=== PATIENT | male | born 1960 | race Caucasian/White ===

== ENCOUNTER 2020-08-14 12:00 | Inpatient (IN) | payer MEDICARE, MEDICAID, SELFPAY ==
[2020-08-14] VITALS (11 sets, daily range): BP systolic 112–145; BP diastolic 46–73; PULSE 56–72; RESP 16–23; TEMP 36.2–36.9; O2SAT 96–99; BMI 38.9
--- NOTE | 2020-08-14 12:41 | ECG_ITS ---
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 Measurements Intervals [place] Rate: 59 P: 52 KS: 201 QRS: 33 QRSD: 100 T: 72 QT: 423 QTc: 419 Interpretive Statements SINUS BRADYCARDIA NONSPECIFIC T-WAVE ABNORMALITY Compared to ECG 08/13/2017 00:22:28 T-wave abnormality now present Atrial fibrillation no longer present Myocardial infarct finding no longer present Electronically Signed On 08-15-2020 8:18:28 CDT by Sheyla Brar M.D. [id number]
--- NOTE | 2020-08-14 13:45 | USCV_ITS ---
Harley Bradley Age: 59 Gender: M : 1960 Exam Date: 08/14/2020 14:16 Ordering Phys: Genevieve Galvin DO Technologist: Christine Keith Exam Location: [facility] [place] Indication: PAIN IN LT POST THIGH HISTORY: Pain in left post thigh. No trauma PROCEDURES: Venous duplex imaging was performed in only the left lower extremity. The following venous structures were evaluated: common femoral vein, profunda vein, proximal portion of the greater saphenous vein, superficial femoral vein, and the popliteal vein. In addition, the posterior tibial and peroneal trunk were evaluated. Serial compression, augmentation maneuvers, and spectral Doppler flow evaluation were performed. FINDINGS: Normal 2-D Doppler and augmentation and compressibility throughout the lower extremity venous structures. Additional imaging through the proximal calf veins also reveals no thrombus. Limited evaluation of the greater saphenous vein is patent with no thrombus.. Edema infiltrating throught the soft tissues of posterior thigh. May be related to muscle or tendon injury. CONCLUSIONS No DVT left lower extremity. Dr. Jaye Rojas DO (Electronically Signed) Final Date: 14 August 2020 15:41 S
--- NOTE | 2020-08-14 14:32 | ED_ITS ---
HPI - General Adult General: Chief complaint: General Medical Stated complaint: LEFT LEG PAIN, Time Seen by Provider: 08/14/20 13:18 Source: patient Mode of arrival: ambulatory Limitations: no limitations History of Present Illness: HPI narrative: Harley is a nice 59-year-old male who comes in complaining of left leg pain. States he has lightheadedness and dizziness. Denies chest pain or shortness of breath. He states his leg pains been present for the past 3 days. He denies any other complaints or concerns. He states that he has severe pain in the back of his left leg and anytime he tries to walk or bear weight it is severe and it makes him nearly pass out. He denies any injury to the leg. He said no fevers or chills. He denies any other complaints. Associated symptoms: Deny chest pain, dyspnea, headache(s), nausea, rash, palpitations, syncope or vomiting Review of Systems Const: Denies: fever(s) Eyes: Denies: change in vision or blurry vision ENMT: Denies: throat pain, hoarseness or swelling of lips/tongue Card: Denies: chest pain, palpitations, syncope, pre-syncope or dyspnea on exertion Resp: Denies: dyspnea, productive cough, non-productive cough, wheezing, change in phlegm color or hemoptysis GI: Denies: abdominal pain, nausea, vomiting or diarrhea : Denies: flank pain, dysuria, urinary frequency or urinary urgency Musc: Denies: neck pain, back pain or extremity pain Skin/Breast: Denies: rash or pruritus Neuro: Denies: headache(s), numbness in extremities, weakness in extremities or dizziness Elliot/Lymph: Denies: easy bruising, easy bleeding, petechiae or purpura All/Imm: Denies: urticaria or throat swelling PFSH ED PFSH: Medical History Atrial fibrillation Coronary artery disease Dyslipidemia Dyspnea on exertion History of Coumadin therapy Hypertension Nicotine dependence Obesity Surgical History Aortic valve replaced [place] metallic device Family History Other CAD (coronary artery disease) Hypertension Social History (Reviewed 09/18/20 @ 20:02 by Genevieve Balderas Smoking and tobacco status: current every day smoker cigarettes [ Other cigarette details: 1 pack/day ] Alcohol intake: never Substance/Drug Use: never Housing: House Physical Exam Const: COMMON NORMALS: no acute distress, patient oriented x3, no limitations and alert GENERAL APPEARANCE: cooperative HENMT: COMMON NORMALS: normocephalic, atraumatic, external ears normal, EAC's normal and Normal external nose present HEAD & SCALP: normal to inspection, normocephalic and atraumatic FACE & SINUS: normal facial exam and face symmetric NOSE: Normal external nose present and Normal nares present EXTERNAL EAR: Yes external ears normal EXTERNAL AUDITORY CANAL: EAC's normal MOUTH: Normal oral and palatal mucosa present, lip normal and tongue normal Eye: COMMON NORMALS: Equal, round and reactive pupils present and conjunctivae normal GENERAL EYE: appearance normal, both eyes and all related structures ALIGNMENT: Yes alignment normal PERIORBITAL: periorbital findings normal EYELID: eyelids normal CONJUNCTIVA: Yes conjunctivae normal SCLERA: sclerae normal PUPIL: Yes Equal, round and reactive pupils present Neck/C-Spine: COMMON NORMALS: full ROM, no lymphadenopathy, supple, no meningeal signs and no JVD GENERAL: Yes normal visual inspection and Yes trachea midline Chest: COMMONS NORMALS: normal inspection of the chest and normal palpation of entire chest wall Resp: COMMON NORMALS: normal respiratory effort, No retractions, No use of accessory muscles and clear to auscultation bilaterally EFFORT & INSPECTION: Yes able to speak in complete sentences and Yes symmetric chest movement AUSCULTATION: clear to auscultation bilaterally, no crackles, no rales, no rhonchi and no wheezes Cardio: COMMON NORMALS: no JVD, regular rate, regular rhythm, S1 normal heart sound present and S2 normal heart sound present RATE: regular rate RHYTHM: regular rhythm HEART SOUNDS: S1 normal heart sound present, S2 normal heart sound present, no click, no gallops, no murmurs and no rubs GI: COMMON NORMALS: Soft to palpation and No hepatosplenomegaly present PALPATION: Yes Soft to palpation, No Tenderness to palpation present (GI), No Guarding due to palpation present (GI), No Rigid due to palpation, Yes No hepatosplenomegaly present, No Hernia present, No Palpable mass present and No Pulsatile mass present : COMMON NORMALS: Yes no CVA tenderness BLADDER/KIDNEY EXAM: Yes no CVA tenderness Back/Pelvis: COMMON NORMALS: no CVA tenderness, thoracic and lumbar spine normal to inspection, no thoracic nor lumbar tenderness and thoraco-lumbar ROM normal Extremity: COMMON NORMALS: capillary refill normal, no joint enlargement, no clubbing, cyanosis or edema and no calf tenderness NARRATIVE EXTREMITY EXAM: Posterior aspect of left thigh with cellulitis and ecchymosis. Neuro: COMMON NORMALS: patient oriented x3, CN's II-XII intact bilaterally, moves all extremities, no focal motor deficits and no sensory deficits noted SENSORIUM/ORIENTATION: Yes alert MENINGEAL SIGNS: Yes no meningeal signs SPEECH: speech normal Psych: COMMON NORMALS: mental status grossly normal, Normal thought process present, cooperative, normal affect, speech normal and activity/motor behavior normal SPEECH: Yes normal speech THOUGHT PROCESS: Normal thought process present Skin: COMMON NORMALS: no rashes or lesions noted, turgor normal, no jaundice, no petechiae and no mottling GENERAL SKIN EXAM: no rashes or lesions noted and turgor normal Course Vital Signs: Vital signs: Vital Signs Temperature 97.1 F L 08/14/20 12:15 Pulse Rate 58 L 08/14/20 19:00 Respiratory Rate 18 08/14/20 19:00 Blood Pressure 135/53 08/14/20 19:00 Pulse Oximetry 99 08/14/20 19:00 MDM - General Adult MDM Narrative: Medical decision making narrative: Patient has intermuscular hematoma of the left leg but there is no sign of inflammation or necrotizing fasciitis. His pain is intractable to the point that he almost passes out when he tries to walk or bear weight. I cannot reverse his Coumadin abruptly as he has a mechanical heart valve. I see a high white count which makes me concerned about a possible developing infection but the radiologist assures me he sees no evidence of necrotizing fasciitis at this time. The case was endorsed to Dr. Treadwell who agrees to admit the patient for observation and he will determine whether to continue IV been a biotics or reverse the Coumadin. Lab Data: Attestation: I reviewed the patient's lab results. Labs: Lab Results 08/14/20 08/14/20 08/14/20 Range/Units 14:43 14:43 14:43 WBC 23.0 H (4.0-10.0) 10^3/ uL RBC 3.84 L (4.1-5.3) 10^6/u L Hgb 12.0 (11.7-16.6) g/dL Hct 35.9 L (42.0-52.0) % MCV 93.5 (80-94) fL MCH 31.3 (28.0-34.0) pg MCHC 33.4 (30.0-36.0) g/dL RDW 12.6 (12.1-15.1) % Plt Count 267 (130-400) 10^3/c mm MPV 10.7 H (7.4-10.4) fL Neut % (Auto) 82.5 % Lymph % (Auto) 9.3 % [place] % (Auto) 7.7 % Eos % (Auto) 0.0 % Baso % (Auto) 0.2 % Neut # (Auto) 18.95 H (1.8-7.7) 10^3/u L Lymph # (Auto) 2.1 (0.8-4.8) 10^3/u L [place] # (Auto) 1.8 H (0.2-0.9) 10^3/u L Eos # (Auto) 0.0 (0.0-0.8) 10^3/u L Baso # (Auto) 0.1 (0.0-0.1) 10^3/u L Nucleated RBC % (a uto) 0 % Nucleated RBCs # 0.0 /100WBC PT (12.1-14.9) SECO NDS INR (0.8-1.2) D-Dimer (0-0.59) ug/mIFE U Sodium 136 (136-145) mmol/L Potassium 3.7 (3.5-5.1) mmol/L Chloride 100 (98-107) mmol/L Carbon Dioxide 20 L (22-29) mmol/L Anion Gap 19.7 H (5-19) BUN 19 (6-20) mg/dL Creatinine 1.4 H (0.7-1.2) mg/dL GFR Calculation 51.9 L (90-130) mL/min Glucose 127 H (65-115) mg/dL Calculated Osmolal ity 286 (285-295) mOsm/k g Lactic Acid (0.5-2.2) mmol/L Calcium 9.1 (8.5-10.5) mg/dL Total Bilirubin 0.5 (0.15-1.2) mg/dL AST 9 (0-40) U/L ALT 9 (0-41) U/L Alkaline Phosphata se 80 (40-130) IU/L Troponin T Baselin e 18 H (0-15) ng/L Troponin T 120 Min hetal (0-15) ng/L Delta Troponin T (0-10) ABS# NT-Pro-B Natriuret Pep 232 H (0-125) pg/mL Total Protein 6.9 (6.6-8.7) g/dL Albumin 3.8 (3.5-5.2) g/dL Globulin 3.1 (1.3-4.6) g/dL 08/14/20 08/14/20 08/14/20 Range/Units 14:43 16:59 18:06 WBC (4.0-10.0) 10^3/ uL RBC (4.1-5.3) 10^6/u L Hgb (11.7-16.6) g/dL Hct (42.0-52.0) % MCV (80-94) fL MCH (28.0-34.0) pg MCHC (30.0-36.0) g/dL RDW (12.1-15.1) % Plt Count (130-400) 10^3/c mm MPV (7.4-10.4) fL Neut % (Auto) % Lymph % (Auto) % [place] % (Auto) % Eos % (Auto) % Baso % (Auto) % Neut # (Auto) (1.8-7.7) 10^3/u L Lymph # (Auto) (0.8-4.8) 10^3/u L [place] # (Auto) (0.2-0.9) 10^3/u L Eos # (Auto) (0.0-0.8) 10^3/u L Baso # (Auto) (0.0-0.1) 10^3/u L Nucleated RBC % (a uto) % Nucleated RBCs # /100WBC PT 37.20 H (12.1-14.9) SECO NDS INR 3.59 H (0.8-1.2) D-Dimer 0.32 (0-0.59) ug/mIFE U Sodium (136-145) mmol/L Potassium (3.5-5.1) mmol/L Chloride (98-107) mmol/L Carbon Dioxide (22-29) mmol/L Anion Gap (5-19) BUN (6-20) mg/dL Creatinine (0.7-1.2) mg/dL GFR Calculation (90-130) mL/min Glucose (65-115) mg/dL Calculated Osmolal ity (285-295) mOsm/k g Lactic Acid (0.5-2.2) mmol/L Calcium (8.5-10.5) mg/dL Total Bilirubin (0.15-1.2) mg/dL AST (0-40) U/L ALT (0-41) U/L Alkaline Phosphata se (40-130) IU/L Troponin T Baselin e (0-15) ng/L Troponin T 120 Min hetal 17.55 H (0-15) ng/L Delta Troponin T -0.45 L (0-10) ABS# NT-Pro-B Natriuret Pep (0-125) pg/mL Total Protein (6.6-8.7) g/dL Albumin (3.5-5.2) g/dL Globulin (1.3-4.6) g/dL 08/14/20 Range/Units 18:26 WBC (4.0-10.0) 10^3/ uL RBC (4.1-5.3) 10^6/u L Hgb (11.7-16.6) g/dL Hct (42.0-52.0) % MCV (80-94) fL MCH (28.0-34.0) pg MCHC (30.0-36.0) g/dL RDW (12.1-15.1) % Plt Count (130-400) 10^3/c mm MPV (7.4-10.4) fL Neut % (Auto) % Lymph % (Auto) % [place] % (Auto) % Eos % (Auto) % Baso % (Auto) % Neut # (Auto) (1.8-7.7) 10^3/u L Lymph # (Auto) (0.8-4.8) 10^3/u L [place] # (Auto) (0.2-0.9) 10^3/u L Eos # (Auto) (0.0-0.8) 10^3/u L Baso # (Auto) (0.0-0.1) 10^3/u L Nucleated RBC % (a uto) % Nucleated RBCs # /100WBC PT (12.1-14.9) SECO NDS INR (0.8-1.2) D-Dimer (0-0.59) ug/mIFE U Sodium (136-145) mmol/L Potassium (3.5-5.1) mmol/L Chloride (98-107) mmol/L Carbon Dioxide (22-29) mmol/L Anion Gap (5-19) BUN (6-20) mg/dL Creatinine (0.7-1.2) mg/dL GFR Calculation (90-130) mL/min Glucose (65-115) mg/dL Calculated Osmolal ity (285-295) mOsm/k g Lactic Acid 1.4 (0.5-2.2) mmol/L Calcium (8.5-10.5) mg/dL Total Bilirubin (0.15-1.2) mg/dL AST (0-40) U/L ALT (0-41) U/L Alkaline Phosphata se (40-130) IU/L Troponin T Baselin e (0-15) ng/L Troponin T 120 Min hetal (0-15) ng/L Delta Troponin T (0-10) ABS# NT-Pro-B Natriuret Pep (0-125) pg/mL Total Protein (6.6-8.7) g/dL Albumin (3.5-5.2) g/dL Globulin (1.3-4.6) g/dL Imaging Data^: US venous left lower extremity: My impression: Tech interpretation -no evidence of DVT CXR: Attestation: I personally reviewed and interpreted this imaging study as follows: My impression: No acute cardiopulmonary findings. CT left lower extremity: Radiologist's impression: [address] [address] [address] Scan Report Signed with Addenda Patient: Harley Bradley Unit #: [id number] : 1960 Age/Sex: 59 / M ADM Date: 08/14/20 Loc: ER Room/Bed: Attending Dr: Ordering Provider/Ordering MD: Genevieve Galvin DO Date of Service: 08/14/20 Procedure(s): CT femur LT w con [id number] Accession Number(s): [id number] Report Number: [id number]/CT femur LT w con [id number] ADDENDUM: Please note there is no soft tissue gas or significant inflammatory change to suggest necrotizing fasciitis. Radiation Dose CTDIVOL = (mGy): DLP = 1522.21 (mGy-cm) Addendum Dictated By: Rinku Watkins MD Addendum Signed By: Rinku Watkins MD Signed Date/Time: 1949 Addendum Cosigned By: PROCEDURE INFORMATION: Exam: CT Left Lower Extremity With Contrast; Thigh Exam date and time: 08/14/2020 4:20 PM Age: 59 years old Clinical indication: Patient HX: Left hip pain and swelling, redness distal back of thigh TECHNIQUE: Imaging protocol: CT of the Left lower extremity with intravenous contrast was performed. Exam focused on the thigh. Axial, coronal and sagittal reformatted images were created and reviewed. Radiation optimization: All CT scans at this facility use at least one of these dose optimization techniques: automated exposure control; mA and/or kV adjustment per patient size (includes targeted exams where dose is matched to clinical indication); or iterative reconstruction. Contrast material: VISPAQUE; Contrast volume: 95 ml; Contrast route: INTRAVENOUS (IV); COMPARISON: No relevant prior studies available. RADIATION DOSE METRICS: Total DLP (mGy-cm): 1522.21 FINDINGS: Bones/joints: No acute fracture or dislocation. Alignment anatomic. Mild degenerative changes. No erosive or destructive changes. No lytic or blastic lesion. No significant effusion. Soft tissues: Lobular, heterogeneous hyperattenuation in the left adductor and proximal hamstring musculature, measuring approximately 6.6 x 5.3 x 22.8 cm. Moderate associated soft tissue swelling and intramuscular blood products. Mild overlying subcutaneous edema. Small amount of subcutaneous blood products in the prepatellar/pretibial region. CT/CT femur LT w con [id number] IMPRESSION: 1. Intramuscular hematoma in the left posterior thigh, as described above. 2. Additional findings, as above. Radiation Dose CTDIVOL = (mGy): DLP = 1522.21 (mGy-cm) Dictated By: Rinku Watkins MD Signed By: Rinku Watkins MD Signed Date/Time: 08/14/201709 DD/ 07 EKG Data^: EKG 1: Attestation: I personally reviewed and interpreted this EKG as follows: EKG interpretation date: 08/14/20 EKG interpretation time: 13:54 Interpretation: Sinus bradycardia at 59 beats a minute, no blocks, normal i ntervals, nonspecific ST and T wave changes. Computer generated interpretation: Chest X-Ray 08/14/20 15:49 IMPRESSION: No acute findings. Metallic sternotomy wires are in place. Femur CT 08/14/20 15:54 IMPRESSION: 1. Intramuscular hematoma in the left posterior thigh, as described above. 2. Additional findings, as above. Radiation Dose CTDIVOL = (mGy): DLP = 1522.21 (mGy-cm) ADDENDUM: 08/14/20 1950 ADDENDUM: Please note there is no soft tissue gas or significant inflammatory change to suggest necrotizing fasciitis. Radiation Dose CTDIVOL = (mGy): DLP = 1522.21 (mGy-cm) EKG 2: Attestation: I personally reviewed and interpreted this EKG as follows: EKG interpretation date: 08/14/20 EKG interpretation time: 16:23 Interpretation: Sinus bradycardia at 56 beats a minute, nonspecific ST and T wave changes. Computer generated interpretation: Chest X-Ray 08/14/20 15:49 IMPRESSION: No acute findings. Metallic sternotomy wires are in place. Femur CT 08/14/20 15:54 IMPRESSION: 1. Intramuscular hematoma in the left posterior thigh, as described above. 2. Additional findings, as above. Radiation Dose CTDIVOL = (mGy): DLP = 1522.21 (mGy-cm) ADDENDUM: 08/14/201949 ADDENDUM: Please note there is no soft tissue gas or significant inflammatory change to suggest necrotizing fasciitis. Radiation Dose CTDIVOL = (mGy): DLP = 1522.21 (mGy-cm) Discharge Plan Discharge Patient Disposition: Home Clinical Impression: Supratherapeutic INR, Hematoma, Intractable pain Condition: Stable Prescriptions: No Action metoprolol tartrate 50 mg tablet 50 mg PO BID 90 Days Qty: 180 RF: 3 hydrocodone-acetaminophen 10-325 mg tablet 1 tab PO Q6H PRN (Reason: Pain) RF: 0 triamterene-hydrochlorothiazid 37.5-25 mg tablet 1 tab PO DAILY RF: 0 omeprazole 20 mg capsule,delayed release(DR/EC) 20 mg PO DAILY RF: 0 aspirin 81 mg Tablet,Chewable 81 mg PO DAILY RF: 0 warfarin 1 mg tablet 8.5 mg PO DAILY RF: 0 sertraline 50 mg tablet 50 mg PO DAILY RF: 0 rosuvastatin 40 mg tablet 40 mg PO DAILY RF: 0 potassium chloride 10 mEq tablet,ER particles/crystals 10 meq PO DAILY RF: 0 Referrals: Saurav Victoria DO [Primary Care Provider] - Coding Level of Care Code ED Animal Attendants [employer] for Chg Fwd Exam Comprehensive
[2020-08-14 14:49] LABS: Basophils # 0.1 10^3/uL (0.0-0.1); Basophils % 0.2 %; Hematocrit 35.9 % (42.0-52.0); Lymphocytes # 2.1 10^3/uL (0.8-4.8); Lymphocytes % 9.3 %; Mean Corpuscular HGB Conc 33.4 g/dL (30.0-36.0); Mean Corpuscular Hemoglobin 31.3 pg (28.0-34.0); Mean Corpuscular Volume 93.5 fL (80-94); Mean Platelet Volume 10.7 fL (7.4-10.4); Monocytes # 1.8 10^3/uL (0.2-0.9); Monocytes % 7.7 %; Neutrophils # 18.95 10^3/uL (1.8-7.7); Neutrophils % 82.5 %; Nucleated Red Blood Cells % 0 %; Platelet Count 267 10^3/cmm (130-400); Red Blood Count 3.84 10^6/uL (4.1-5.3); Red Cell Distribution Width 12.6 % (12.1-15.1)
[2020-08-14] MEDS: sodium chloride 0.9% 1,000 ML 100 ML IV (15:02)
[2020-08-14 15:04] LABS: D Dimer 0.32 ug/mIFEU (0-0.59)
[2020-08-14 15:09] LABS: Troponin(5th) Baseline 18 ng/L (0-15)
[2020-08-14 15:40] LABS: Alanine Aminotransferase 9 U/L (0-41); Albumin Level 3.8 g/dL (3.5-5.2); Alkaline Phosphatase 80 IU/L (40-130); Anion Gap 19.7 (5-19); Aspartate Amino Transferase 9 U/L (0-40); Blood Urea Nitrogen 19 mg/dL (6-20); Calcium 9.1 mg/dL (8.5-10.5); Carbon Dioxide 20 mmol/L (22-29); Chloride 100 mmol/L (98-107); Globulin 3.1 g/dL (1.3-4.6); Glomerular Filtration Rate 51.9 mL/min (90-130); Glucose 127 mg/dL (65-115); NT Pro B Type Natriuretic Pept 232 pg/mL (0-125); Osmolality Calculated 286 mOsm/kg (285-295); Potassium 3.7 mmol/L (3.5-5.1); Sodium 136 mmol/L (136-145); Total Bilirubin 0.5 mg/dL (0.15-1.2); Total Protein 6.9 g/dL (6.6-8.7)
--- NOTE | 2020-08-14 15:45 | ECG_ITS ---
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 Measurements Intervals [place] Rate: 56 P: 51 UT: 201 QRS: 25 QRSD: 91 T: 70 QT: 432 QTc: 420 Interpretive Statements SINUS BRADYCARDIA POSSIBLE INFERIOR MYOCARDIAL INFARCTION , OF INDETERMINATE AGE [30 ms Q WAVE IN II/aVF] Compared to ECG 08/14/2020 13:54:29 Myocardial infarct finding now present T-wave abnormality no longer present Electronically Signed On 08-15-2020 8:56:43 CDT by Sheyla Brar M.D. [id number]
--- NOTE | 2020-08-14 15:49 | XRR_ITS ---
PROCEDURE INFORMATION: Exam: XR Chest, 1 View Exam date and time: 08/14/2020 4:03 PM Age: 59 years old Clinical indication: Dyspnea TECHNIQUE: Imaging protocol: XR of the chest Views: 1 view. COMPARISON: CR Chest 1 [place] [id number] 08/12/2017 6:36 PM FINDINGS: Lungs: Unremarkable. No consolidation. Pleural space: Unremarkable. No pleural effusion. No pneumothorax. Heart/Mediastinum: Unremarkable. No cardiomegaly. Bones/joints: Metallic sternotomy wires are in place. Similar findings seen comparing to prior examination XR/XR chest 1V portable [id number] IMPRESSION: No acute findings. Metallic sternotomy wires are in place.
--- NOTE | 2020-08-14 15:54 | CTR_ITS ---
PROCEDURE INFORMATION: Exam: CT Left Lower Extremity With Contrast; Thigh Exam date and time: 08/14/2020 4:20 PM Age: 59 years old Clinical indication: Patient HX: Left hip pain and swelling, redness distal back of thigh TECHNIQUE: Imaging protocol: CT of the Left lower extremity with intravenous contrast was performed. Exam focused on the thigh. Axial, coronal and sagittal reformatted images were created and reviewed. Radiation optimization: All CT scans at this facility use at least one of these dose optimization techniques: automated exposure control; mA and/or kV adjustment per patient size (includes targeted exams where dose is matched to clinical indication); or iterative reconstruction. Contrast material: VISPAQUE; Contrast volume: 95 ml; Contrast route: INTRAVENOUS (IV); COMPARISON: No relevant prior studies available. RADIATION DOSE METRICS: Total DLP (mGy-cm): 1522.21 FINDINGS: Bones/joints: No acute fracture or dislocation. Alignment anatomic. Mild degenerative changes. No erosive or destructive changes. No lytic or blastic lesion. No significant effusion. Soft tissues: Lobular, heterogeneous hyperattenuation in the left adductor and proximal hamstring musculature, measuring approximately 6.6 x 5.3 x 22.8 cm. Moderate associated soft tissue swelling and intramuscular blood products. Mild overlying subcutaneous edema. Small amount of subcutaneous blood products in the prepatellar/pretibial region. CT/CT femur LT w con [id number] IMPRESSION: 1. Intramuscular hematoma in the left posterior thigh, as described above. 2. Additional findings, as above. Radiation Dose CTDIVOL = (mGy): DLP = 1522.21 (mGy-cm)
[2020-08-14] MEDS: iodixanol 320 mg/mL 100mL Btl IV (16:47)
[2020-08-14] MEDS: piperacillin-tazobactam 4.5 GM in sodium chloride 0.9% (plus) 50 ML IV (17:14)
[2020-08-14 17:21] LABS: Troponin 5 2HR 17.55 ng/L (0-15)
[2020-08-14 17:22] LABS: Troponin 5 2HR Delta -0.45 ABS# (0-10)
[2020-08-14 18:26] LABS: INR 3.59 (0.8-1.2)
[2020-08-14 18:49] LABS: Lactic Sepsis W/Reflex 1.4 mmol/L (0.5-2.2)
--- NOTE | 2020-08-14 19:45 | ECG_ITS ---
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 Measurements Intervals [place] Rate: 62 P: 20 SD: 173 QRS: 27 QRSD: 89 T: 58 QT: 438 QTc: 448 Interpretive Statements SINUS RHYTHM POSSIBLE INFERIOR MYOCARDIAL INFARCTION , PROBABLY OLD [30 ms Q WAVE IN II/aVF] Compared to ECG 08/14/2020 16:23:06 Sinus bradycardia no longer present Myocardial infarct finding still present Electronically Signed On 08-15-2020 8:43:49 CDT by Sheyla Brar M.D. [id number]
--- NOTE | 2020-08-14 19:46 | P.HP_ITS ---
Providers/Chief Complaint Primary Care Provider: Saurav Victoria DO Chief Complaint: LEFT LEG PAIN, DIZZY History of Present Illness Harley Bradley is a 59 year old male who carries history of mechanical aortic valve, chronic anticoagulation with Coumadin came in with chief complaint of left leg pain. Patient is stating that his symptoms started 2 days ago when he slept after drinking alcohol, after waking up he started experiencing left eye pain, he did not notice any bruising at that time, he is denying falls, skin tear, trauma to that leg. He did not notice any fever. He is compliant with his Coumadin. He also has been experiencing presyncopal events, he is describing dizziness as lightheadedness, no recent falls. No orthopnea, PND or chest pain. Diagnosis in the ER revealed left thigh hematoma, normal hemoglobin, normal hemodynamics, for leukocytosis he was given vancomycin and Zosyn in the ER, negative delta troponin, EKG not significant for ischemia or infarction. No source of infection. I have demarcated the area of hematoma. Review of Systems Const: Denies: fever(s), chills, body aches or fatigue Eyes: Denies: change in vision ENMT: Denies: throat pain Card: Denies: chest pain Resp: Denies: dyspnea GI: Denies: abdominal pain, nausea, vomiting or diarrhea : Denies: flank pain or urinary frequency Musc: Reports: extremity pain, limited range of motion and muscle cramps Skin/Breast: Reports: new lesions Neuro: Denies: headache(s) Psych: Denies: anxiety Endo: Denies: polyuria Elliot/Lymph: Denies: easy bruising All/Imm: Denies: urticaria Medications/Allergies Home Medications Medication Instructions Recorded Confirmed Last Taken Type metoprolol tartrate 50 mg tablet 50 mg PO BID 90 Days #180 tab 03/03/20 08/14/20 08/14/20 Rx aspirin 81 mg PO DAILY 08/14/20 08/14/20 08/14/20 History hydrocodone-acetaminophen 1 tab PO Q6H PRN 08/14/20 08/14/20 Unknown History omeprazole 20 mg PO DAILY 08/14/20 08/14/20 08/14/20 History potassium chloride 10 meq PO DAILY 08/14/20 08/14/20 08/13/20 History rosuvastatin 40 mg PO DAILY 08/14/20 08/14/20 08/13/20 History sertraline 50 mg PO DAILY 08/14/20 08/14/20 08/14/20 History triamterene-hydrochlorothiazid 1 tab PO DAILY 08/14/20 08/14/20 08/14/20 History warfarin 8.5 mg PO DAILY 08/14/20 08/14/20 08/13/20 History Allergies Allergy/AdvReac Type Severity Reaction Status Date / Time codeine Allergy ADR-Vomitin Verified 08/14/20 12:20 g PFSH Acute PFSH: Medical History Atrial fibrillation Coronary artery disease Dyslipidemia Dyspnea on exertion History of Coumadin therapy Hypertension Nicotine dependence Obesity Surgical History Aortic valve replaced [place] metallic device Family History Other CAD (coronary artery disease) Hypertension Social History Smoking and tobacco status: current every day smoker cigarettes [ Other cigarette details: 1 pack/day ] Alcohol intake: never Substance/Drug Use: never Housing: House Vitals/I&O/Wt Last Vital Signs Temp 97.1 F L 08/14/20 12:15 Pulse 58 L 08/14/20 19:00 Resp 18 08/14/20 19:00 BP 135/53 08/14/20 19:00 Pulse Ox 99 08/14/20 19:00 08/14/20 08/14/20 08/14/20 06:59 14:59 22:59 Intake Total 1050 / 1050 Balance 1050 / 1050 Weight last 48 hrs Weight 145.15 kg Physical Exam Narrative: EXAM NARRATIVE: Morbidly obese male Currently in comfortable position in his bed Saturating well on room air Normal hemodynamics Left posterior thigh hematoma demarcated, tender to palpation, no vascular compromise, no active bleeding or oozing/drainage No signs of heart failure, S1, S2 sinus bradycardia noted on EKG however at the time of evaluation heart rate in 70s Abdomen distended, bowel sound present nontender Lungs clear to auscultation No lower extremity edema gangrene ulcer EOMI, PERRLA Appropriate mood and affect Data : 08/14/20 14:43 08/14/20 14:43 A&P Assessment and plan (1) Leg pain: Status: Acute (2) Hematoma: Status: Acute (3) Pre-syncope: Status: Acute (4) Supratherapeutic INR: Status: Acute (5) GRACIE (acute kidney injury): Status: Acute (6) Intractable pain: Status: Acute Additional A&P Information Left posterior thigh hematoma Spontaneous development of hematoma without any trauma or recent falls Supratherapeutic INR Considering mechanical aortic valve I would not reverse INR with vitamin K or FF P, hold Coumadin and aspirin for now Considering normal hemoglobin and hemodynamics no intervention required Conservative management for monitoring of hematoma Presyncope No recent falls, sinus bradycardia noted on EKG, I would hold metoprolol for now Acute kidney injury I believe this is secondary to use of triamterene/hydrochlorothiazide medication Clinically does not look fluid overloaded, BNP not significantly high I do not think supratherapeutic INR has a role in GRACIE at this point(literature supports renal parenchymal hemorrhage with supratherapeutic INR above 3) Monitor creatinine with daily BMP Holding nephrotoxic agents Nicotine dependence Patient is endorsing that he will not quit smoking, he has been counseled by his PCP and various physicians as well. Full code DVT prophylaxis: SCDs Cardiac diet Attestations Medical Necessity Statement*: Anticipating discharge in less than 48 hours overnight need monitoring for hematoma worsening, GRACIE, holding beta-kraig for presyncopal event Time Spent in Patient Care: (>than 50% of time spent in counselling and/or direct pt care on unit) . 40mins Coding Level of Care Code Acute Television Production Technician for Chg Fwd Diagnoses Leg pain M79.606 Hematoma T14.8XXA Pre-syncope R55 Supratherapeutic INR R79.1 GRACIE (acute kidney injury) N17.9 Intractable pain R52
--- NOTE | 2020-08-14 20:01 | PC.NURSE ---
EKG done at 1999 and shown to ER doctor
[2020-08-14 20:33] LABS: Add Urine Microscopic? YES; Bilirubin Urine Neg (Negative); Blood Urine 2+ (Negative); Glucose Urine UA Norm (Normal); Ketones Urine Negative (Negative); Leukocyte Esterase Urine Negative (Negative); Nitrate Urine Negative (Negative); Protein Urine Neg (Negative); Specific Gravity, Urine 1.005 (1.005-1.030); Urine Appearance Clear (CLEAR); Urine Color Yellow (Yellow); Urobilinogen Urine Norm (Negative); pH Urine 5 (5-7)
[2020-08-14 20:45] LABS: Add Urine Culture? No; Amorphous Sediment Urine TRACE /hpf; Bacteria Urine TRACE /hpf; Hyaline Casts Urine 0-4 /lpf; Mucus Urine 1+ /hpf; Squamous Epithelial Cell Urine 0-4 /hpf (0-5); WBC Urine 0-4 /hpf (0-5)
[2020-08-14 21:25] LABS: Troponin 5 6HR 19.99 ng/L (0-15); Troponin 5 6HR Delta 1.99 ng/L (0-12)
[2020-08-15] VITALS: BP 135/61; PULSE 67; RESP 20; TEMP 37.1; O2SAT 96
[2020-08-15 04:00] VITALS: BP 123/56; PULSE 72; RESP 20; TEMP 36.9; O2SAT 97
[2020-08-15 05:31] LABS: Basophils # 0.1 10^3/uL (0.0-0.1); Basophils % 0.2 %; Eosinophils # 0.1 10^3/uL (0.0-0.8); Eosinophils % 0.4 %; Hematocrit 31.5 % (42.0-52.0); Hemoglobin 10.6 g/dL (11.7-16.6); Lymphocytes # 2.8 10^3/uL (0.8-4.8); Lymphocytes % 13.4 %; Mean Corpuscular HGB Conc 33.7 g/dL (30.0-36.0); Mean Corpuscular Volume 92.1 fL (80-94); Mean Platelet Volume 10.7 fL (7.4-10.4); Monocytes # 1.7 10^3/uL (0.2-0.9); Monocytes % 7.9 %; Neutrophils # 16.11 10^3/uL (1.8-7.7); Neutrophils % 77.6 %; Nucleated Red Blood Cells % 0 %; Platelet Count 264 10^3/cmm (130-400); Red Blood Count 3.42 10^6/uL (4.1-5.3); Red Cell Distribution Width 12.4 % (12.1-15.1); White Blood Count 20.8 10^3/uL (4.0-10.0)
[2020-08-15 05:58] LABS: Anion Gap 13.2 (5-19); Blood Urea Nitrogen 18 mg/dL (6-20); Calcium 8.8 mg/dL (8.5-10.5); Carbon Dioxide 24 mmol/L (22-29); Chloride 101 mmol/L (98-107); Glomerular Filtration Rate 51.9 mL/min (90-130); Glucose 131 mg/dL (65-115); Osmolality Calculated 284 mOsm/kg (285-295); Potassium 3.2 mmol/L (3.5-5.1); Sodium 135 mmol/L (136-145)
[2020-08-15 06:16] LABS: Partial Thromboplastin Time 63.5 SECONDS (23.9-36.7)
[2020-08-15 07:50] VITALS: BP 126/81; PULSE 68; RESP 18; TEMP 36.9; O2SAT 98
[2020-08-15] MEDS: atorvastatin 40 mg Tablet 80 MG PO (08:37)
[2020-08-15] MEDS: pantoprazole DR 40 mg Tablet PO (08:37)
[2020-08-15] MEDS: sertraline 50 mg Tablet PO (08:37)
[2020-08-15] MEDS: potassium chloride ER 10 mEq Tablet PO (08:37)
[2020-08-15 11:16] VITALS: BP 144/79; PULSE 62; RESP 20; TEMP 37.1; O2SAT 98
[2020-08-15] MEDS: potassium chloride ER 10 mEq Tablet 40 MEQ PO (11:21)
--- NOTE | 2020-08-15 12:34 | P.PN_ITS ---
Subjective Subjective: Interval history: History and physical reviewed in detail. Patient reports quite a bit of left posterior leg pain but he can still ambulate. He denies feeling dizzy this morning. He reports he cannot remember any incident. He states he drank some alcohol last night but it was only the equivalent of 2 shots. Medications: Reviewed: Yes Vitals/I&O/Wt Last Vital Signs Temp 98.7 F 08/15/20 11:16 Pulse 62 08/15/20 11:16 Resp 20 H 08/15/20 11:16 BP 144/79 08/15/20 11:16 Pulse Ox 98 08/15/20 11:16 08/14/20 08/15/20 08/15/20 22:59 06:59 14:59 Intake Total 1170 / 1170 700 / 1870 180 / 180 Output Total 500 / 500 700 / 700 Balance 1170 / 1170 200 / 1370 -520 / -520 Weight last 48 hrs Weight 145.15 kg Physical Exam Narrative: EXAM NARRATIVE: General exam no apparent distress Cardiovascular regular rate and rhythm without murmur, click noted Lungs clear Abdomen is soft with positive bowel sounds Extremities no cyanosis clubbing or edema Data : 08/15/20 04:58 08/15/20 04:58 A&P Assessment and plan (1) Leg pain: Secondary to hematoma. Doubt any active bleeding. Coumadin has been held. INR 4.2 today. Status: Acute (2) Hematoma: See notations above Initiated secondary to this and elevated white blood cell count. No evidence c urrently of infection. Antibiotics were previously discontinued Status: Acute (3) Pre-syncope: Secondary to hematoma and blood loss from this. Status: Acute (4) Supratherapeutic INR: Secondary to mechanical aortic valve will not attempt to reverse as I do not believe he is actively bleeding. Check hemoglobin around 1700 Status: Acute (5) GRACIE (acute kidney injury): Improved Status: Acute (6) Intractable pain: Improved Status: Acute Additional A&P Information Mechanical aortic valve. On Coumadin. INR currently supratherapeutic Tobacco dependency Full code INR is supratherapeutic, no DVT prophylaxis needed Changed to regular admission. Patient has significant hematoma size, that can prevent from walking, significant drop in hemoglobin, still elevated and INR and chance for decompensation with the potential to even need transfusion. Hemoglobin will be checked at 5, physical therapy will work with him for safety, and INR will be checked tomorrow along with repeat lab work. Attestations Medical Necessity Statement*: Needs continued hospital stay, for close krysten toring secondary to hematoma development left leg Coding Level of Care Code Acute Beater Tender for Chg Fwd Diagnoses Leg pain M79.606 Hematoma T14.8XXA Pre-syncope R55 Supratherapeutic INR R79.1 GRACIE (acute kidney injury) N17.9 Intractable pain R52
[2020-08-15 15:51] VITALS: BP 124/74; PULSE 67; RESP 20; TEMP 37.2; O2SAT 99
[2020-08-15 17:12] LABS: Hemoglobin 10.6 g/dL (11.7-16.6)
[2020-08-15] MEDS: metoprolol tartrate 25 mg Tablet 12.5 MG PO (17:16)
[2020-08-15 20:00] VITALS: BP 128/76; PULSE 64; RESP 17; TEMP 37.4; O2SAT 97
[2020-08-16] VITALS: BP 137/68; PULSE 66; RESP 16; TEMP 37.1; O2SAT 95
[2020-08-16 04:00] VITALS: BP 107/73; PULSE 68; RESP 17; TEMP 36.9; O2SAT 97
[2020-08-16 04:27] LABS: Basophils % 0.3 %; Eosinophils # 0.1 10^3/uL (0.0-0.8); Eosinophils % 0.6 %; Hematocrit 29.3 % (42.0-52.0); Hemoglobin 10.2 g/dL (11.7-16.6); Lymphocytes # 2.4 10^3/uL (0.8-4.8); Lymphocytes % 15.1 %; Mean Corpuscular HGB Conc 34.8 g/dL (30.0-36.0); Mean Corpuscular Hemoglobin 31.5 pg (28.0-34.0); Mean Corpuscular Volume 90.4 fL (80-94); Mean Platelet Volume 10.2 fL (7.4-10.4); Monocytes # 1.4 10^3/uL (0.2-0.9); Monocytes % 8.7 %; Neutrophils # 11.68 10^3/uL (1.8-7.7); Neutrophils % 74.9 %; Nucleated Red Blood Cells % 0 %; Platelet Count 285 10^3/cmm (130-400); Red Blood Count 3.24 10^6/uL (4.1-5.3); Red Cell Distribution Width 12.3 % (12.1-15.1); White Blood Count 15.6 10^3/uL (4.0-10.0)
[2020-08-16 04:38] LABS: INR 3.79 (0.8-1.2)
[2020-08-16 04:52] LABS: Alanine Aminotransferase 18 U/L (0-41); Albumin Level 3.6 g/dL (3.5-5.2); Alkaline Phosphatase 66 IU/L (40-130); Anion Gap 14.4 (5-19); Aspartate Amino Transferase 23 U/L (0-40); Blood Urea Nitrogen 20 mg/dL (6-20); Calcium 8.2 mg/dL (8.5-10.5); Carbon Dioxide 27 mmol/L (22-29); Chloride 101 mmol/L (98-107); Globulin 2.8 g/dL (1.3-4.6); Glomerular Filtration Rate 56.5 mL/min (90-130); Glucose 129 mg/dL (65-115); Osmolality Calculated 292 mOsm/kg (285-295); Potassium 3.4 mmol/L (3.5-5.1); Sodium 139 mmol/L (136-145); Total Bilirubin 0.7 mg/dL (0.15-1.2); Total Protein 6.4 g/dL (6.6-8.7)
[2020-08-16 07:56] VITALS: BP 128/69; PULSE 63; RESP 18; TEMP 37; O2SAT 96
[2020-08-16] MEDS: metoprolol tartrate 25 mg Tablet 12.5 MG PO (08:43)
[2020-08-16] MEDS: pantoprazole DR 40 mg Tablet PO (08:43)
[2020-08-16] MEDS: atorvastatin 40 mg Tablet 80 MG PO (08:43)
[2020-08-16] MEDS: sertraline 50 mg Tablet PO (08:44)
[2020-08-16] MEDS: potassium chloride ER 10 mEq Tablet 40 MEQ PO (08:56)
--- NOTE | 2020-08-16 09:25 | P.DS_ITS ---
Discharge Providers Date of Admission: 08/15/20 12:45 Date of Discharge: August 16, 2020 Attending Provider at Admission: Jenny Treadwell MD Attending Provider at Discharge: Kelvin Jose MD Primary Care Provider: Saurav Victoria DO Diagnoses at Discharge Discharge Diagnosis (1) Leg pain: Status: Acute (2) Hematoma: Status: Acute (3) Pre-syncope: Status: Acute (4) Supratherapeutic INR: Status: Acute (5) GRACIE (acute kidney injury): Status: Acute (6) Intractable pain: Status: Acute Reason for Visit Reason for Visit: LEFT LEG PAIN, DIZZY Hospital Course Hospital Course: Harley is a 59-year-old white male who presented to the hospital with a supratherapeutic INR, and leg pain. He was found to have a spontaneous hematoma development in the lower thigh. CT confirmed this with an area of hematoma 6.6 x 5.3 x 22.8. Patient had an elevated white blood cell count but no evidence of infection. Physical therapy was consulted, Coumadin was held. Over the course of his hospital stay he was able to ambulate. Feelin gs of faintness went away. Hemoglobin did decrease as expected with significant hematoma bleed but stabilized at 10.2. On August 16 he felt like he was doing well enough to go home. INR had decreased to 3.79 from 4.2. There was no evidence of active bleeding. He was discharged home with instructions not to take his Coumadin, until follow-up with INR tomorrow and instructions per cardiology. He will follow-up with his primary care provider in 3 to 5 days. Physical Exam Narrative: EXAM NARRATIVE: General exam no apparent distress Cardiovascular regular in rhythm without murmur Lungs clear Abdomen is soft with positive bowel sounds Extremities no cyanosis clubbing or edema. Hematoma noted left posterior thigh, proximal to the knee. Distal pulses intact. Discharge Data Data Completed and Pending: Completed Studies During Hospitalization Category Date Time Status CT femur LT w con [id number] Stat Cat Scan 08/14/20 15:54 Completed XR chest 1V ash ble [id number] Stat Exams 08/14/20 15:49 [place] [id number] Stat Ultrasound 08/14/20 13:45 Completed Pending at discharge Category Date Time Status Blood Culture Sta t Lab 08/14/20 17:02 Results Labs from last 24 hours 08/16/20 08/16/20 08/16/20 04:07 04:07 04:07 WBC 15.6 H RBC 3.24 L Hgb 10.2 L Hct 29.3 L MCV 90.4 MCH 31.5 MCHC 34.8 RDW 12.3 Plt Count 285 MPV 10.2 Neut % (Auto) 74.9 Lymph % (Auto) 15.1 Kemper % (Auto) 8.7 Eos % (Auto) 0.6 Baso % (Auto) 0.3 Neut # (Auto) 11.68 H Lymph # (Auto) 2.4 Kemper # (Auto) 1.4 H Eos # (Auto) 0.1 Baso # (Auto) 0.0 Nucleated RBC % (a uto) 0 Nucleated RBCs # 0.0 PT 38.90 H INR 3.79 H Sodium 139 Potassium 3.4 L Chloride 101 Carbon Dioxide 27 Anion Gap 14.4 BUN 20 Creatinine 1.3 H GFR Calculation 56.5 L Glucose 129 H Calculated Osmolal ity 292 Calcium 8.2 L Total Bilirubin 0.7 AST 23 ALT 18 Alkaline Phosphata se 66 Total Protein 6.4 L Albumin 3.6 Globulin 2.8 08/15/20 08/15/20 17:00 04:58 WBC RBC Hgb 10.6 L Hct MCV MCH MCHC RDW Plt Count MPV Neut % (Auto) Lymph % (Auto) Kemper % (Auto) Eos % (Auto) Baso % (Auto) Neut # (Auto) Lymph # (Auto) Kemper # (Auto) Eos # (Auto) Baso # (Auto) Nucleated RBC % (a uto) Nucleated RBCs # PT 42.20 H INR 4.20 H Sodium Potassium Chloride Carbon Dioxide Anion Gap BUN Creatinine GFR Calculation Glucose Calculated Osmolal ity Calcium Total Bilirubin AST ALT Alkaline Phosphata se Total Protein Albumin Globulin Vitals: Last Vital Signs Temp 98.6 F 08/16/20 07:56 Pulse 63 08/16/20 07:56 Resp 18 08/16/20 07:56 BP 128/69 08/16/20 07:56 Pulse Ox 96 08/16/20 07:56 Discharge Plan Discharge Patient Disposition: Home Condition: Stable Prescriptions: New metoprolol tartrate 25 mg Tablet 12.5 mg PO BID Qty: 30 RF: 0 Continued hydrocodone-acetaminophen 10-325 mg tablet 1 tab PO Q6H PRN (Reason: Pain) RF: 0 triamterene-hydrochlorothiazid 37.5-25 mg tablet 1 tab PO DAILY RF: 0 omeprazole 20 mg capsule,delayed release(DR/EC) 20 mg PO DAILY RF: 0 aspirin 81 mg Tablet,Chewable 81 mg PO DAILY RF: 0 warfarin 1 mg tablet 8.5 mg PO DAILY RF: 0 sertraline 50 mg tablet 50 mg PO DAILY RF: 0 rosuvastatin 40 mg tablet 40 mg PO DAILY RF: 0 potassium chloride 10 mEq tablet,ER particles/crystals 10 meq PO DAILY RF: 0 Discontinued metoprolol tartrate 50 mg tablet 50 mg PO BID 90 Days Qty: 180 RF: 3 Discharge Orders: Discharge Order (Routine); Ordered 08/16/20 Ordered By: Kelvin Jose Referrals: Saurav Victoria DO [Primary Care Provider] - 4-7 days (Please call Dr Victoria's office at [phone] to make a one week hospital follow appointment. ) Discharge Diet: Cardiac Discharge Activity: Limit activity as instructed Activity Restrictions/Additional Instructions: Elevate leg when possible. Follow-up with cardiology tomorrow for an INR, and instructions on Coumadin. Do not take your Coumadin today. Discharge Attestations Time Spent in Discharge Care*: greater than 30 min Quality Metrics Clinical Quality Measures During this hospital stay, did patient experience: None Coding Level of Care Code Acute Security Intelligence Analyst for Rowdy Fwd Diagnoses Leg pain M79.606 Hematoma T14.8XXA Pre-syncope R55 Supratherapeutic INR R79.1 GRACIE (acute kidney injury) N17.9 Intractable pain R52
--- NOTE | 2020-08-16 10:16 | PC.CHAP ---
Pastoral Care Encounter/Spiritual Assessment Type of Contact [] Declined oyster farmer visit [] Patient/Family/Request visit [] Outpatient visit [] Follow-up visit [] Physician referral [] Code/Alert [x] Routine visit [] Staff referral [] Actively dying [] Patient sleeping [] Family support [] [] Out of room [] Palliative care [] [] Receiving care in room [] Pre-surgical visit [] Trauma [] Long length of stay [] ICU visit [] Other: Relational/Emotional Strength [x] Patient feels connected with others/family/visitors/staff [] Distress [] Loneliness/isolation [] Abandonment Spirituality of Patient [x] Person of Araceli [] Attends Scientology of their Araceli [] Believes in Prayer [] Reads Bible or Uatsdin materials [] There are Spiritual issues to be addressed Flat Grinder Operator Interventions [x] Prayer [x] Active listening [x] Non-anxious presence [x] Spiritual/emotional support [] Crisis/trauma care [] Spiritual counseling [] Bereavement support [] Provided bereavement packet [] Provided Bible/devotional materials [] Provided toy/stuffed animal, coloring book to patient or family member [] Provided Communion [] Anointing/Orange [] Salvation [x] Completed spiritual assessment [] Other: Impact on Illness or Injury [] Angry [] Fearful [] Anxious [] Often cries [] Exhaustion [] Unable to work [] Unable to attend catholic [] Unable to walk/stand [] Unable to read [] Unable to drive [] Unable to eat/drink [] Unable to sleep [] Unable to be with family [] Patient intubated [] Other: Summary Chaplains Brandon and Jadyn Moya visited and prayed with Patient. Time spent with patient 10 minutes.
[2020-08-16 11:09] VITALS: BP 128/69; PULSE 63; RESP 18; TEMP 37; O2SAT 96
--- NOTE | 2020-08-17 18:17 | PC.RESP ---
Smoking Cessation information sent to patient.
== END 2020-08-16 11:10 | disposition home or self-care (01) | DRG 605 ==
LOC: ER 20:04 → MEDSURG 21:02
PROVIDERS: Nurse Practitioner Family; Admitting Provider Internal Medicine; Emergency Provider Emergency Medicine; Family Provider Internal Medicine; PCP Internal Medicine; Visit Provider Internal Medicine
DX: S70.12XA Contusion of left thigh, initial encounter (principal); N17.9 Acute kidney failure, unspecified; X58.XXXA Exposure to other specified factors, initial encounter; M79.652 Pain in left thigh; Z95.2 Presence of prosthetic heart valve; Z79.01 Long term (current) use of anticoagulants; I48.91 Unspecified atrial fibrillation; I25.10 Atherosclerotic heart disease of native coronary artery without angina pectoris; E78.5 Hyperlipidemia, unspecified; I10 Essential (primary) hypertension; F17.210 Nicotine dependence, cigarettes, uncomplicated; E66.9 Obesity, unspecified; Z68.39 Body mass index [BMI] 39.0-39.9, adult; R55 Syncope and collapse; R79.1 Abnormal coagulation profile; Z79.891 Long term (current) use of opiate analgesic; Z79.82 Long term (current) use of aspirin
CPT/HCPCS: 12345; 36415; 71045; 73701; 80048; 80053; 81001; 83605; 83880; 84484; 85018; 85025; 85378; 85610; 85730; 87040; 93005; 93971; 97161; 99283; G0378; J2543; J3370; J7030; J7040; Q9967

== ENCOUNTER 2021-01-05 09:27 | Outpatient (CLI) | payer MEDICARE, MEDICAID, SELFPAY ==
[2021-01-05 11:06] LABS: Basophils # 0.1 10^3/uL (0.0-0.1); Basophils % 0.3 %; Eosinophils # 0.2 10^3/uL (0.0-0.8); Eosinophils % 1.2 %; Hematocrit 44.4 % (42.0-52.0); Hemoglobin 15.7 g/dL (11.7-16.6); Lymphocytes # 2.5 10^3/uL (0.8-4.8); Lymphocytes % 16.8 %; Mean Corpuscular HGB Conc 35.4 g/dL (30.0-36.0); Mean Corpuscular Hemoglobin 30.3 pg (28.0-34.0); Mean Corpuscular Volume 85.7 fL (80-94); Mean Platelet Volume 10.3 fL (7.4-10.4); Monocytes # 0.9 10^3/uL (0.2-0.9); Monocytes % 6.2 %; Neutrophils # 10.91 10^3/uL (1.8-7.7); Neutrophils % 75.1 %; Nucleated Red Blood Cells % 0 %; Platelet Count 281 10^3/cmm (130-400); Red Blood Count 5.18 10^6/uL (4.1-5.3); Red Cell Distribution Width 13.3 % (12.1-15.1); White Blood Count 14.6 10^3/uL (4.0-10.0)
--- NOTE | 2021-01-05 13:35 | ONC CON_ITS ---
Dr. Solis New Patient Note Patient: Harley Bradley Unit #: [id number]: [id number] Dicatated By: Tatiana Solis M.D.Date of Visit: Jan 05, 2021 Onc MED New Patient/Consult Referring Physician: Dr. Saurav Victoria M.D. History of Present Illness: Mr. Harley Bradley, is a 60-year-old gentleman 40+ year history of smoking and still smoke about pack a day and aortic regurgitation status post aortic valve prosthetic replacement, nephrectomy for chronic ureteral reflux. Chronic musculoskeletal pain syndrome. Chronic back pain. Chronic depressive personality disorder. Was found to have elevated white blood count during his routine follow-up visit and lab work-up, as per medical record his CBC done on December 21, 2020 showed white blood count 13,000 hemoglobin 16.2 hematocrit 47.3 platelets 263,000 differential shows neutrophil 74%, lymphocytes 18.5% creatinine 1 calcium 9.3. Patient denies any recurrence fever or dysuria or sinus tenderness or chronic skin infection or diarrhea or constipation or productive cough or shortness of breath or steroid use or nosebleed or gum bleed or melena or hematochezia or hemoptysis hematemesis. Off and on night sweats since left leg surgery, but no recurrent fever, recent weight loss because of not cooking regularly.Denies any peripheral lymphadenopathy or abdominal fullness Patient smoke about pack a day and denies alcohol use or recreational drug use. Past Medical History: Mr. Bradley's medical history consists of anxiety, aortic regurgitaion, atrial fibrillation, chronic depressive personality disorder, chronic musculoskeletal pain, coronary artery disease, depression, gastroesophageal reflux disease, hyperlipidemia, and left carpal tunnel syndrome. Past Surgical History: Mr. Bradley's surgical/procedural history consists of aortic valve replacement and nephrectomy. Medications: Aspirin 1 Tablet (of 81 mg) Tablet, chewable Oral daily, HYDROcodone-Acetaminophen 1 Tablet (of 10-325 mg) Oral q 6 hours, K-Tab 1 Tablet (of 10 meq) Tablet, controlled release Oral daily, Metoprolol Tartrate 0.5 Tablet (of 25 mg) Oral b.i.d., Omeprazole 1 Capsule (of 20 mg) Capsule Delayed Release Oral daily, Rosuvastatin Calcium 1 Tablet (of 40 mg) Oral daily, Sertraline HCl 1 Tablet (of 50 mg) Oral daily, Triamterene-HCTZ 1 Tablet (of 37.5-25 mg) Oral daily, Warfarin Sodium 8.5 mg (of 1 mg) Tablet Oral daily Allergies: Tylenol with Codeine #3 Social History: Mr. Bradley is . He is a daily smoker who has smoked for 31 years. He has no history of drinking. Family History: Mr. Escobedos mother is : type II diabetes, and renal failure. Mr. Escobedos father is : Picks disease. Mr. Bradley's maternal grandmother is : colon cancer. His maternal grandfather is : type II diabetes, and Lung Cancer, and colon cancer. His paternal grandfather is : Picks Disease. Review Of Symptoms: Constitutional - Appetite is good and weight is stable. No fever, night sweats, or hot flashes. Energy level is good, ENMT - No sinus congestion/drainage. No mouth sores. No sore throat or difficulty swallowing, Hematologic/Lymphatic - No abnormal bruising or bleeding, Respiratory - No shortness of breath. No cough. No pleuritic pain or hemoptysis, Cardiovascular - No angina pain. No palpitations, Gastrointestinal - No nausea or vomiting. No heartburn or acid reflux. No diarrhea or constipation. No blood in the stool or black stools, Genitourinary (M) - No dysuria or hematuria. No urinary frequency. No urgency or incontinence, Musculoskeletal - Positive for joint pain, Neurologic - No headache or dizziness. No numbness or tingling. No other focal neurologic symptoms, Psychiatric - No anxiety or depression. No insomnia. Vital Signs: Performed on Jan 05, 2021 11:17: 4, 41.32 (HIGH), 2.66 sq.m, 74 in, 99 %, 59 /min (LOW), 20 /min, 137/87 mm(hg), 97.5 F (LOW), and 321.8 lbs (HIGH). Performance Status: 1 - No physically strenuous activity, but ambulatory and able to carry out light or sedentary work (e.g. office work, light house work). (ECOG) Physical Examination: ENMT - No mouth sores, no thrush, no jaundice, Respiratory - Poor air entry otherwise clear, Cardiovascular - Regular rate and rhythm of heart, Abdomen - Soft, bowel sounds present, Extremities - No visible edema. Lab/Imaging: Most recent lab results are not available for this patient. Impression: Leukocytosis/neutrophilia most likely reactive, to underlying chronic inflammation or infection like subclinical bronchitis due to chronic smoking, or smoking itself, other possibility could be myeloproliferative bone marrow disorder like CML or CMML. Aortic regurgitation status post aortic valve prosthetic involvement Chronic musculoskeletal pain syndrome Chronic smoking, still active Chronic depressive personality disorder Plan: Discussed with patient regarding his labs, white blood count 14.6 hemoglobin 15.7 hematocrit 44.4 platelets 281,000 neutrophils 10,9k Clinically, patient is doing well with no new signs symptoms, his lab work-up shows persistent mild leukocytosis with neutrophilia etiology unclear but multifactorial, could be reactive to chronic smoking or smoking induced chronic bronchitis or sinusitis or chronic inflammation as patient has history of chronic musculoskeletal pain syndrome or underlying myeloproliferative disorder like CML or CMML cannot be ruled out. Patient was advised to quit smoking for 2 to 3 weeks and then repeat CBC but patient declined, patient was advised to quit smoking and was offered any assistance he may need, patient declined again. In that case, we will consider, whole blood flow cytometry, FISH for CML, also review peripheral blood smear. Patient will return to clinic in 1 month with CBC and to discuss about above-mentioned work-up if it shows any abnormality, we may consider bone marrow evaluation to confirm. Signed By: Tatiana Solis M.D. <<Signature on File>>
[2021-01-05 15:53] LABS: LAB Peripheral Smear Sent for Review
== END 2021-01-05 09:28 | disposition home or self-care (01) ==
LOC: ONCMED 09:31
PROVIDERS: Family Provider Internal Medicine; PCP Internal Medicine; Visit Provider Internal Medicine Hematology & Oncology
DX: D72.9 Disorder of white blood cells, unspecified (principal); D72.829 Elevated white blood cell count, unspecified; I35.1 Nonrheumatic aortic (valve) insufficiency; Z95.2 Presence of prosthetic heart valve; G89.4 Chronic pain syndrome; F17.210 Nicotine dependence, cigarettes, uncomplicated; F34.1 Dysthymic disorder; Z79.899 Other long term (current) drug therapy
CPT/HCPCS: 36415; 80500; 85025; 88184; 88185; 99204

== ENCOUNTER 2021-02-05 07:44 | Outpatient (CLI) | payer MEDICARE, MEDICAID, SELFPAY ==
[2021-02-05 08:18] LABS: Basophils # 0.1 10^3/uL (0.0-0.1); Basophils % 0.5 %; Eosinophils # 0.3 10^3/uL (0.0-0.8); Eosinophils % 2.3 %; Lymphocytes # 2.9 10^3/uL (0.8-4.8); Lymphocytes % 23.2 %; Mean Corpuscular HGB Conc 34.1 g/dL (30.0-36.0); Mean Corpuscular Hemoglobin 30.5 pg (28.0-34.0); Mean Corpuscular Volume 89.4 fL (80-94); Mean Platelet Volume 10.4 fL (7.4-10.4); Monocytes # 0.7 10^3/uL (0.2-0.9); Monocytes % 5.7 %; Neutrophils # 8.54 10^3/uL (1.8-7.7); Neutrophils % 67.9 %; Nucleated Red Blood Cells % 0 %; Platelet Count 336 10^3/cmm (130-400); Red Blood Count 4.92 10^6/uL (4.1-5.3); Red Cell Distribution Width 13.6 % (12.1-15.1); White Blood Count 12.6 10^3/uL (4.0-10.0)
--- NOTE | 2021-02-05 12:52 | ONC FU_ITS ---
Dr. Solis follow up note Patient: Harley Bradley Unit #: [id number]: 1960 Dicatated By: Tatiana Solis M.D.Date of Visit:Feb 05, 2021 Onc Med Follow-up/Prog Note History of Present Illness: Mr. Harley Bradley, is a 60-year-old gentleman 40+ year history of smoking and still smoke about pack a day and aortic regurgitation status post aortic valve prosthetic replacement, nephrectomy for chronic ureteral reflux. Chronic musculoskeletal pain syndrome. Chronic back pain. Chronic depressive personality disorder. Was found to have elevated white blood count during his routine follow-up visit and lab work-up, as per medical record his CBC done on December 21, 2020 showed white blood count 13,000 hemoglobin 16.2 hematocrit 47.3 platelets 263,000 differential shows neutrophil 74%, lymphocytes 18.5% creatinine 1 calcium 9.3. Patient denies any recurrence fever or dysuria or sinus tenderness or chronic skin infection or diarrhea or constipation or productive cough or shortness of breath or steroid use or nosebleed or gum bleed or melena or hematochezia or hemoptysis hematemesis. Off and on night sweats since left leg surgery, but no recurrent fever, recent weight loss because of not cooking regularly.Denies any peripheral lymphadenopathy or abdominal fullness Patient smoke about pack a day and denies alcohol use or recreational drug use. Peripheral blood smear done on January 05, 2021 shows leukocytosis with relative neutrophilia, neutrophils with toxic granulation, no blast or blast equivalent cells seen. Whole blood flow cytometry done on January 05, 2021 shows no aberrant myeloid or lymphoid population FISH for BCR ABL 1 fusion was negative Came for follow-up, denies any specific complaints, no fever chills,, no dysuria, no sinus problem, no sore throat, no nausea or vomiting no diarrhea or constipation, no headaches no blurred vision or double vision still smoke about pack a day. Medications: Aspirin 1 Tablet (of 81 mg) Tablet, chewable Oral daily, HYDROcodone-Acetaminophen 1 Tablet (of 10-325 mg) Oral q 6 hours, K-Tab 1 Tablet (of 10 meq) Tablet, controlled release Oral daily, Metoprolol Tartrate 0.5 Tablet (of 25 mg) Oral b.i.d., Omeprazole 1 Capsule (of 20 mg) Capsule Delayed Release Oral daily, Rosuvastatin Calcium 1 Tablet (of 40 mg) Oral daily, Sertraline HCl 1 Tablet (of 50 mg) Oral daily, Triamterene-HCTZ 1 Tablet (of 37.5-25 mg) Oral daily, Warfarin Sodium 8.5 mg (of 1 mg) Tablet Oral daily Allergies: Tylenol with Codeine #3 Review of Systems: Review of Systems is not available for this patient. Vital Signs: Performed on Feb 05, 2021 09:42 Height - 74.00 in Weight - 321.6 lbs (LOW) BSA - 2.66 sq.m BMI - 41.29 (HIGH) Temperature - 97.3 F (LOW) Pulse - 63 /min Respiration - 17 /min BP - 139/68 mm(hg) O2 Sat - 97 % Pain - 2 Performance Status: 0 - Fully active, able to carry on all predisease activities without restrictions. (ECOG) Physical Examination: ENMT - No mouth sores, no thrush, no jaundice, no lymphadenopathy, Respiratory - Lungs are clear to auscultation , Cardiovascular - Regular rate and rhythm of heart, Abdomen - Soft, bowel sounds present, Extremities - No visible edema. Lab/Imaging: Test performed on Jan 05, 2021 10:55 WBC 14.6 10 3/uL RBC 5.18 10 6/uL HGB 15.7 g/dL HCT 44.4 % MCV 85.7 fL MCH 30.3 pg MCHC 35.4 g/dL RDW 13.3 % Platelet Count 281 10 3/cmm MPV 10.3 fL Neutrophils 10.91 10 3/uL Lymphocytes 2.5 10 3/uL Monocytes 0.9 10 3/uL Eosinophils 0.2 10 3/uL Basophils 0.1 10 3/uL Neutrophil % 75.1 % Lymphocyte % 16.8 % Monocyte % 6.2 % Eosinophil % 1.2 % Basophils % 0.3 % NRBC % 0 % Impression: Leukocytosis/neutrophilia most likely reactive, to underlying chronic inflammation or infection like subclinical bronchitis due to chronic smoking, or smoking itself, other possibility could be myeloproliferative bone marrow disorder like CML or CMML. Aortic regurgitation status post aortic valve prosthetic involvement Chronic musculoskeletal pain syndrome Chronic smoking, still active Chronic depressive personality disorder Plan: Discussed with patient regarding his labs white blood count 12.6, compared to 14.6 on January 05, 2021, hemoglobin 15 hematocrit 44 platelets 336,000 with a normal differential FISH for BCR ABL1 fusion was negative, whole blood flow cytometry showed no aberrant myeloid or lymphoid cell, peripheral blood smear shows no blast-like cell but leukocytosis/neutrophilia Clinically, patient doing well with no new signs symptoms his work-up for myeloproliferative disorder which include whole blood flow cytometry, FISH for BCR ABL1 fusion was negative, it appears his leukocytosis most likely due to chronic smoking or related underlying subclinical bronchitis or sinusitis. Patient was advised to quit smoking and he was offered any assistance he may need. Today's labs shows improvement in his mild leukocytosis with a normal differential, will monitor he will return to clinic in 2 months with CBC if there is evidence of progression or persistent leukocytosis, we may consider bone marrow evaluation. Signed By: Tatiana Solis M.D. <<Signature on File>>
== END 2021-02-05 07:45 | disposition home or self-care (01) ==
LOC: ONCMED 07:47
PROVIDERS: PCP Internal Medicine; Visit Provider Internal Medicine Hematology & Oncology
DX: D72.828 Other elevated white blood cell count (principal); F17.210 Nicotine dependence, cigarettes, uncomplicated; G89.4 Chronic pain syndrome; F34.1 Dysthymic disorder; Z79.01 Long term (current) use of anticoagulants; Z95.2 Presence of prosthetic heart valve
CPT/HCPCS: 36415; 85025; G0463

== ENCOUNTER 2021-04-07 12:57 | Outpatient (CLI) | payer MEDICARE, MEDICAID, SELFPAY ==
--- NOTE | 2021-04-07 13:12 | USCV_ITS ---
Harley Bradley Age: 60 Gender: M : 1960 Exam Date: 04/07/2021 12:58 Ordering Phys: Saurav Victoria DO Technologist: Exam Location[place] [facility] [place] Indication: Aortic valve replaced RIGHT LEFT Brachial 122.00 mmHg Brachial 120.00 mmHg Pressure (mmHg) Waveform Pressure (mmHg) Waveform 144.00 MANAGER PORTABLE 155.00 128.00 DPA 135.00 1.18 Ankle/Brachial Index 1.27 95.00 Pre-Exercise Toe Pressure 61.00 0.78 Pre-Exercise Toe/Brachial Index 0.50 FINDINGS See measurements listed above. Normal resting ABIs bilaterally Normal resting TBI on the right side Slightly diminished resting TBI on the left side CONCLUSIONS Normal resting LIZZY with abnormal resting TBI on the left side, suggesting mild peripheral artery disease. No significant arterial obstruction on the right side Dr William Finch MD [facility] (Electronically Signed) Final Date: 07 Apr 2021 21:02 S
== END 2021-04-07 12:58 | disposition home or self-care (01) ==
PROVIDERS: PCP Internal Medicine; Visit Provider Internal Medicine
DX: Z95.2 Presence of prosthetic heart valve (principal)
CPT/HCPCS: 93922

== ENCOUNTER 2021-04-08 14:55 | Outpatient (CLI) | payer MEDICARE, MEDICAID, SELFPAY ==
--- NOTE | 2021-04-08 15:01 | USCV_ITS ---
Harley Bradley Age: 60 Gender: M : 1960 Exam Date: 04/08/2021 15:28 Ordering Phys: Saurav Victoria DO Technologist: Exam Location: [facility] [place]ication: AV REPLACE BP: 145 / 85 HR: 56 Rhythm: Sinus Technical Quality: Fair MEASUREMENTS (Male / Female) Normal Values 2D ECHO LV Diastolic Diameter PLAX 3.0 cm 4.2 - 5.9 / 3.9 - 5.3 cm LV Systolic Diameter PLAX 2.6 cm IVS Diastolic Thickness 1.4 cm 0.6 - 1.0 / 0.6 - 0.9 cm IVS Systolic Thickness 1.6 cm LVPW Diastolic Thickness 1.3 cm 0.6 - 1.0 / 0.6 - 0.9 cm LVPW Systolic Thickness 1.6 cm LVOT Diameter 2.2 cm LV Ejection Fraction 2D Teich 15.5 % LV Ejection Fraction MOD 2C 63.3 % LV Ejection Fraction 2C AL 62.1 % LA Diameter 3.7 cm LA Width 3.6 cm LA Height 6.1 cm RA Width 3.5 cm RA Height 4.7 cm Aorta at Sinotubular Diameter 2.8 cm M-MODE LV Diastolic Diameter MM 4.7 cm 4.2 - 5.9 / 3.9 - 5.3 cm LV Systolic Diameter MM 2.8 cm LV Ejection Fraction MM Teich 70.7 % IVS Diastolic Thickness MM 1.4 cm 0.6 - 1.0 / 0.6 - 0.9 cm IVS Systolic Thickness MM 1.9 cm LVPW Diastolic Thickness MM 1.5 cm 0.6 - 1.0 / 0.6 - 0.9 cm LVPW Systolic Thickness MM 2.0 cm RV Diastolic Diameter MM 1.7 cm MV E Point Septal Separation 0.9 cm DOPPLER AV Peak Velocity 230.3 cm/s LVOT Peak Velocity 86.0 cm/s AV Area Cont Eq vti 1.7 cm squared AV Area Cont Eq pk 1.4 cm squared MV Area PHT 5.0 cm squared Mitral E to A Ratio 1.7 MV E' Velocity 52.5 cm/s Mitral E to MV E' Ratio 9.3 Mitral E to LV E' Lateral Ratio 10.0 Mitral E to LV E' Septal Ratio 8.8 TR Peak Velocity 226.3 cm/s TR Peak Gradient 20.5 mmHg Right Atrial Pressure 3.0 mmHg Pulmonary Artery Systolic Pressu 23.5 mmHg FINDINGS Left Ventricle Normal left ventricular size. LV systolic function is normal with EF of 55-60%. No regional wall motion abnormalities. Normal diastolic filling pattern. Right Ventricle The right ventricle is normal in size and function. Right Atrium The right atrium is normal in size. Left Atrium The left atrium is normal in size. Mitral Valve Structurally normal mitral valve without significant stenosis or prolapse. There is no mitral regurgitation. Aortic Valve Mechanical aortic valve is noted. Grossly normal. There is mildly increased gradient of 10.2mmHg across the valve. DVI is normal with a value of 0.47. There is no aortic regurgitation. Tricuspid Valve Structurally normal tricuspid valve without significant stenosis or regurgitation. Insufficient TR jet to calculate RVSP Pulmonic Valve Structurally normal pulmonic valve without significant stenosis. There is no pulmonic regurgitation. Pericardium Normal pericardium without effusion. Aorta Normal ascending aorta dimension. CONCLUSIONS LV systolic function is normal with EF of 55-60% Diatsolic function is normal Mechanical aortic valve has mildly increased gradient across it, however DVI is normal. Normally functioning valve. Can be followed with serial yearly echos Compared to prior echocardiogram from 08/13/2017, mechanical aortic valve is noted now Torres Reno MD (Electronically Signed) Final Date: 11 Apr 2021 15:57 S
== END 2021-04-08 14:56 | disposition home or self-care (01) ==
LOC: RAD 15:00
PROVIDERS: PCP Internal Medicine; Visit Provider Internal Medicine
DX: Z95.2 Presence of prosthetic heart valve (principal)
CPT/HCPCS: 93306

== ENCOUNTER 2021-04-12 11:36 | Outpatient (CLI) | payer MEDICARE, MEDICAID, SELFPAY ==
[2021-04-12 12:19] LABS: Basophils # 0.1 10^3/uL (0.0-0.1); Basophils % 0.4 %; Eosinophils # 0.2 10^3/uL (0.0-0.8); Eosinophils % 1.4 %; Hematocrit 45.4 % (42.0-52.0); Hemoglobin 15.6 g/dL (11.7-16.6); Lymphocytes # 2.4 10^3/uL (0.8-4.8); Mean Corpuscular HGB Conc 34.4 g/dL (30.0-36.0); Mean Platelet Volume 11.2 fL (7.4-10.4); Monocytes # 0.8 10^3/uL (0.2-0.9); Neutrophils # 10.38 10^3/uL (1.8-7.7); Neutrophils % 74.8 %; Nucleated Red Blood Cells % 0 %; Platelet Count 347 10^3/cmm (130-400); Red Blood Count 4.88 10^6/uL (4.1-5.3); Red Cell Distribution Width 13.2 % (12.1-15.1); White Blood Count 13.9 10^3/uL (4.0-10.0)
--- NOTE | 2021-04-12 14:24 | ONC FU_ITS ---
Dr. Solis follow up note Patient: Harley Bradley Unit #: [id number]: 1960 Dicatated By: Tatiana Solis M.D.Date of Visit:April 12, 2021 Onc Med Follow-up/Prog Note History of Present Illness: Mr. Harley Bradley, is a 60-year-old gentleman 40+ year history of smoking and still smoke about pack a day and aortic regurgitation status post aortic valve prosthetic replacement, nephrectomy for chronic ureteral reflux. Chronic musculoskeletal pain syndrome. Chronic back pain. Chronic depressive personality disorder. Was found to have elevated white blood count during his routine follow-up visit and lab work-up, as per medical record his CBC done on December 21, 2020 showed white blood count 13,000 hemoglobin 16.2 hematocrit 47.3 platelets 263,000 differential shows neutrophil 74%, lymphocytes 18.5% creatinine 1 calcium 9.3. Patient denies any recurrence fever or dysuria or sinus tenderness or chronic skin infection or diarrhea or constipation or productive cough or shortness of breath or steroid use or nosebleed or gum bleed or melena or hematochezia or hemoptysis hematemesis. Off and on night sweats since left leg surgery, but no recurrent fever, recent weight loss because of not cooking regularly.Denies any peripheral lymphadenopathy or abdominal fullness Patient smoke about pack a day and denies alcohol use or recreational drug use. Peripheral blood smear done on January 05, 2021 shows leukocytosis with relative neutrophilia, neutrophils with toxic granulation, no blast or blast equivalent cells seen. Whole blood flow cytometry done on January 05, 2021 shows no aberrant myeloid or lymphoid population FISH for BCR ABL 1 fusion was negative Came for follow-up, denies any specific complaint, no fever chills, no nausea or vomiting, no diarrhea constipation, no night sweats, no weight loss, no recurrent fever, no abdominal fullness, patient quit smoking for some time but now has restarted Medications: Aspirin 1 Tablet (of 81 mg) Tablet, chewable Oral daily, HYDROcodone-Acetaminophen 1 Tablet (of 10-325 mg) Oral q 6 hours, K-Tab 1 Tablet (of 10 meq) Tablet, controlled release Oral daily, Metoprolol Tartrate 0.5 Tablet (of 25 mg) Oral b.i.d., Omeprazole 1 Capsule (of 20 mg) Capsule Delayed Release Oral daily, Rosuvastatin Calcium 1 Tablet (of 40 mg) Oral daily, Sertraline HCl 1 Tablet (of 50 mg) Oral daily, Triamterene-HCTZ 1 Tablet (of 37.5-25 mg) Oral daily, Warfarin Sodium 8.5 mg (of 1 mg) Tablet Oral daily Allergies: Tylenol with Codeine #3 Review of Systems: Review of Systems is not available for this patient. Vital Signs: Performed on April 12, 2021 12:52 Height - 74.00 in Weight - 327.2 lbs (HIGH) BSA - 2.68 sq.m BMI - 42.01 (HIGH) Temperature - 97.1 F (LOW) Pulse - 67 /min Respiration - 18 /min BP - 129/70 mm(hg) O2 Sat - 98 % Pain - 6 Performance Status: 0 - Fully active, able to carry on all predisease activities without restrictions. (ECOG) Physical Examination: ENMT - No mouth sores, no thrush, no jaundice, no cervical lymphadenopathy, Respiratory - Lungs are clear to auscultation, Cardiovascular - Regular rate and rhythm of heart, Abdomen - Soft, bowel sounds present, Extremities - No visible edema. Lab/Imaging: Test performed on Jan 05, 2021 10:55 WBC 14.6 10 3/uL RBC 5.18 10 6/uL HGB 15.7 g/dL HCT 44.4 % MCV 85.7 fL MCH 30.3 pg MCHC 35.4 g/dL RDW 13.3 % Platelet Count 281 10 3/cmm MPV 10.3 fL Neutrophils 10.91 10 3/uL Lymphocytes 2.5 10 3/uL Monocytes 0.9 10 3/uL Eosinophils 0.2 10 3/uL Basophils 0.1 10 3/uL Neutrophil % 75.1 % Lymphocyte % 16.8 % Monocyte % 6.2 % Eosinophil % 1.2 % Basophils % 0.3 % NRBC % 0 % Impression: Leukocytosis/neutrophilia most likely reactive, to underlying chronic inflammation or infection like subclinical bronchitis due to chronic smoking, or smoking itself, other possibility could be myeloproliferative bone marrow disorder like CML or CMML. Aortic regurgitation status post aortic valve prosthetic involvement Chronic musculoskeletal pain syndrome Chronic smoking, still active Chronic depressive personality disorder Plan: Discussed with patient regarding his labs white blood count 13.9 compared to 12.6 previously hemoglobin 15.6 hematocrit 45.4 platelets 347,000 ANC 10,380 compared to 8540 previously Clinically, patient is doing well with no new signs symptoms his follow-up labs shows persistent now progressive leukocytosis, concern is myeloproliferative disorder although whole blood flow cytometry did not show any abnormality, concern is underlying myeloproliferative disorders and patient is also anxious as his mother also had leukocytosis and he is concerned, at this point we will consider bone marrow evaluation Return to clinic 10 days after bone marrow evaluation for further discussion Signed By: Tatiana Solis M.D. <<Signature on File>>
== END 2021-04-12 11:37 | disposition home or self-care (01) ==
LOC: ONCMED 11:39
PROVIDERS: PCP Internal Medicine; Visit Provider Internal Medicine Hematology & Oncology
DX: D72.820 Lymphocytosis (symptomatic) (principal); I35.1 Nonrheumatic aortic (valve) insufficiency; G89.4 Chronic pain syndrome; F17.210 Nicotine dependence, cigarettes, uncomplicated; F34.1 Dysthymic disorder; Z79.899 Other long term (current) drug therapy
CPT/HCPCS: 85025; 99214

== ENCOUNTER → 2021-04-22 13:30 | Outpatient (BNVA) | payer MEDICARE, MEDICAID, SELFPAY | PROVIDERS: PCP Internal Medicine; Visit Provider Internal Medicine Hematology & Oncology | DX: Z01.812 Encounter for preprocedural laboratory examination (principal); Z20.822 Contact with and (suspected) exposure to COVID-19 | CPT/HCPCS: 87635 ==

== ENCOUNTER 2021-05-04 08:37 | Day surgery (SDC) | payer MEDICARE, MEDICAID, SELFPAY ==
[2021-04-22 12:35] VITALS: BMI 42.0
--- NOTE | 2021-05-04 08:56 | ANES.PREANE2 ---
Pre-Anesthetic Assessment Pre-Anesthetic Assessment: Height/Weight: Height 1.88 m Weight 148.325 kg Preop Diagnosis: leukocytosis Proposed Procedure: Operation Date: 05/04/21 11:00 Proposed Procedures p Bone Marrow Biospy With Aspiration D72.829 D72.9(Not Applicable) - Tatiana Solis MD Familial anesthetic complications: Woke up during a kidney surgery back when he was 13 years old Was Beta Nabila taken within 24 hours: Yes Was Clonidine taken within 24 hours: N/A Last intake: NPO > 8 hrs Social: Social History: Tobacco Exam: Pre-Anes Outpt Exam: alert, oriented x 3, clear to auscultation bilaterally and regular rate & rhythm Airway: Cervical ROM: WNL MP: 4 Dentition: Loose (in the back) and Other (missing, poor dentition) Additional comments: full santos CV/HEM: Comments: s/p AVR (16 years ago) holding warfarin for 5 days ECHO CONCLUSIONS LV systolic function is normal with EF of 55-60% Diatsolic function is normal Mechanical aortic valve has mildly increased gradient across it, however DVI is normal. Normally functioning valve. Can be followed with serial yearly echos Compared to prior echocardiogram from 08/13/2017, mechanical aortic valve is noted now : Comments: ? nephrectomy at age 13 vs involution of kidney d/ chronic reflux Metabolic: Metabolic: Morbid obesity Musc/skel: Musc/skel: OA/DJD Comments: Leg Anesthetic Plan: ASA status: 3 Anesthesia: MAC Risk of > 500 ml blood loss (7ml/kg in children): No PFSH Anesthesia PFSH: Medical History (Updated 08/17/20 @ 00:01 by ) Atrial fibrillation Coronary artery disease Dyslipidemia Dyspnea on exertion History of Coumadin therapy Hypertension Nicotine dependence Obesity Surgical History Aortic valve replaced [place] metallic device Family History Other CAD (coronary artery disease) Hypertension Social History Smoking and tobacco status: current every day smoker cigarettes [ Other cigarette details: 1 pack/day ] Alcohol intake: never Housing: House Data Anesthesia Cardiac Studies: No Data to Display
[2021-05-04 09:54] VITALS: BP 132/70; PULSE 56; RESP 18; TEMP 36.6; O2SAT 96
[2021-05-04] MEDS: sodium chloride 0.9% 1,000 ML 30 ML IV (10:15)
[2021-05-04 10:28] LABS: Basophils # 0.1 10^3/uL (0.0-0.1); Basophils % 0.5 %; Eosinophils # 0.2 10^3/uL (0.0-0.8); Eosinophils % 1.4 %; Hemoglobin 15.1 g/dL (11.7-16.6); Lymphocytes # 2.1 10^3/uL (0.8-4.8); Lymphocytes % 16.9 %; Mean Corpuscular HGB Conc 35.1 g/dL (30.0-36.0); Mean Corpuscular Hemoglobin 31.2 pg (28.0-34.0); Mean Corpuscular Volume 88.8 fL (80-94); Mean Platelet Volume 9.9 fL (7.4-10.4); Monocytes # 0.8 10^3/uL (0.2-0.9); Monocytes % 6.7 %; Neutrophils # 9.25 10^3/uL (1.8-7.7); Neutrophils % 74.1 %; Nucleated Red Blood Cells % 0 %; Platelet Count 286 10^3/cmm (130-400); Red Blood Count 4.84 10^6/uL (4.1-5.3); Red Cell Distribution Width 12.4 % (12.1-15.1); White Blood Count 12.5 10^3/uL (4.0-10.0)
[2021-05-04 12:15] VITALS: BP 117/69; PULSE 46; RESP 18; O2SAT 99
[2021-05-04 12:31] VITALS: BP 119/63; PULSE 47; RESP 18; O2SAT 98
--- NOTE | 2021-05-04 12:49 | P.PCN_ITS ---
Bone Marrow Biopsy Bone Marrow Biopsy: I was consulted by [] office regarding bone marrow biopsy on Harley Dongtammianthony []. Briefly, the patient is a 60 [] year old [male] with [] leukocytosis. In the Outpatient Services Department, with nursing staff and laboratory technologists in attendance, the procedure was discussed with the patient. Appropriate consent form had been signed. Appropriate alternatives, benefits and risks of procedure were discussed with the patient and she was pre- operatively assessed with a history and physical by myself and cleared for the biopsy procedure. The patient did request IV sedation and that was provided by the Anesthesia Department. Under aseptic condition right posterior iliac area was cleaned and prepped, local anesthesia was given, about 15 cc of bone marrow aspirate and core biopsy was obtained, specimen was sent for routine histopathology and flow cytometry/cytogenetics and FISH for MPS, patient tolerated procedure well postprocedure nursing instructions were given Thank you for allowing me to participate in this patient's care and diagnosis. Coding Level of Care Code Acute Personal Property Assessor for Rowyd Cardona
[2021-05-04 12:50] VITALS: BP 120/78; PULSE 48; RESP 18; O2SAT 99
--- NOTE | 2021-05-04 21:23 | ANE.PACU2 ---
Inpatient post-anesthesia follow up: Airway intact: Yes Vital signs: Temperature 97.9 F Pulse Rate 48 Respiratory Rate 18 Blood Pressure 120/78 Pulse Oximetry 99 Oxygen Delivery Me thod Room Air Oxygen Flow Rate Fraction of Inspir ed Oxygen Hydration adequate: Yes Nausea and vomiting: No Pain level: 2 Mental status: Baseline
[2021-05-06 08:15] LABS: Miscellaneous Test See Scanned Lab Rpt
[2021-05-17 12:53] LABS: Miscellaneous Test See Scanned Lab Rpt
== END 2021-05-04 13:20 | disposition home or self-care (01) ==
PROVIDERS: PCP Internal Medicine; Visit Provider Internal Medicine Hematology & Oncology
PROC: 07DT3ZX Extraction of Bone Marrow, Percutaneous Approach, Diagnostic (ICD-10-PCS; CPT 38222; principal; 2021-05-04 11:00)
DX: D72.829 Elevated white blood cell count, unspecified (principal); E66.01 Morbid (severe) obesity due to excess calories; Z68.41 Body mass index [BMI] 40.0-44.9, adult; Z90.5 Acquired absence of kidney; I48.91 Unspecified atrial fibrillation; I25.10 Atherosclerotic heart disease of native coronary artery without angina pectoris; E78.5 Hyperlipidemia, unspecified; Z79.01 Long term (current) use of anticoagulants; F17.210 Nicotine dependence, cigarettes, uncomplicated
CPT/HCPCS: 38222; 36415; 85025; 88184; 88188; 88237; 88264; 88305; 88374; 96360; 96361; J2704; J7030

== ENCOUNTER 2021-05-11 08:29 | Outpatient (CLI) | payer MEDICARE, MEDICAID, SELFPAY ==
[2021-05-11 09:27] LABS: Basophils # 0.1 10^3/uL (0.0-0.1); Basophils % 0.4 %; Eosinophils # 0.2 10^3/uL (0.0-0.8); Eosinophils % 1.6 %; Hemoglobin 16.2 g/dL (11.7-16.6); Lymphocytes # 2.4 10^3/uL (0.8-4.8); Lymphocytes % 17.9 %; Mean Corpuscular HGB Conc 34.5 g/dL (30.0-36.0); Mean Corpuscular Volume 89.9 fL (80-94); Mean Platelet Volume 10.2 fL (7.4-10.4); Monocytes # 0.9 10^3/uL (0.2-0.9); Neutrophils # 9.72 10^3/uL (1.8-7.7); Neutrophils % 72.6 %; Nucleated Red Blood Cells % 0 %; Platelet Count 289 10^3/cmm (130-400); Red Blood Count 5.23 10^6/uL (4.1-5.3); Red Cell Distribution Width 12.5 % (12.1-15.1); White Blood Count 13.4 10^3/uL (4.0-10.0)
--- NOTE | 2021-05-12 17:37 | ONC FU_ITS ---
Dr. Solis follow up note Patient: Harley Bradley Unit #: [id number]: 1960 Dicatated By: Tatiana Solis M.D.Date of Visit:May 11, 2021 Onc Med Follow-up/Prog Note History of Present Illness: Mr. Harley Bradley, is a 60-year-old gentleman 40+ year history of smoking and still smoke about pack a day and aortic regurgitation status post aortic valve prosthetic replacement, nephrectomy for chronic ureteral reflux. Chronic musculoskeletal pain syndrome. Chronic back pain. Chronic depressive personality disorder. Was found to have elevated white blood count during his routine follow-up visit and lab work-up, as per medical record his CBC done on December 21, 2020 showed white blood count 13,000 hemoglobin 16.2 hematocrit 47.3 platelets 263,000 differential shows neutrophil 74%, lymphocytes 18.5% creatinine 1 calcium 9.3. Patient denies any recurrence fever or dysuria or sinus tenderness or chronic skin infection or diarrhea or constipation or productive cough or shortness of breath or steroid use or nosebleed or gum bleed or melena or hematochezia or hemoptysis hematemesis. Off and on night sweats since left leg surgery, but no recurrent fever, recent weight loss because of not cooking regularly.Denies any peripheral lymphadenopathy or abdominal fullness Patient smoke about pack a day and denies alcohol use or recreational drug use. Peripheral blood smear done on January 05, 2021 shows leukocytosis with relative neutrophilia, neutrophils with toxic granulation, no blast or blast equivalent cells seen. Whole blood flow cytometry done on January 05, 2021 shows no aberrant myeloid or lymphoid population FISH for BCR ABL 1 fusion was negative, Underwent bone marrow evaluation on May 04, 2021 which showed normocellular bone marrow for age, no overt dyspoietic or increased blast cells seen. Flow cytometric did not detect any aberrant myeloid or lymphoid population. Came for follow-up, denies any specific complaints, no fever chills, no nausea vomiting, no diarrhea constipation, no discomfort at bone marrow site,, still smoking 1 pack a day Medications: Aspirin 1 Tablet (of 81 mg) Tablet, chewable Oral daily, HYDROcodone-Acetaminophen 1 Tablet (of 10-325 mg) Oral q 6 hours, K-Tab 1 Tablet (of 10 meq) Tablet, controlled release Oral daily, Metoprolol Tartrate 0.5 Tablet (of 25 mg) Oral b.i.d., Omeprazole 1 Capsule (of 20 mg) Capsule Delayed Release Oral daily, Rosuvastatin Calcium 1 Tablet (of 40 mg) Oral daily, Sertraline HCl 1 Tablet (of 50 mg) Oral daily, Triamterene-HCTZ 1 Tablet (of 37.5-25 mg) Oral daily, Warfarin Sodium 8.5 mg (of 1 mg) Tablet Oral daily Allergies: Tylenol with Codeine #3 Review of Systems: Review of Systems is not available for this patient. Vital Signs: Performed on May 11, 2021 10:17 Height - 74.00 in Weight - 325.6 lbs (LOW) BSA - 2.67 sq.m BMI - 41.80 (HIGH) Temperature - 96.9 F (LOW) Pulse - 96.9 /min Respiration - 18 /min BP - 149/84 mm(hg) (HIGH) O2 Sat - 97 % Pain - 7 Fatigue - 4 Performance Status: 0 - Fully active, able to carry on all predisease activities without restrictions. (ECOG) Physical Examination: ENMT - No mouth sores, no thrush, no jaundice, no cervical lymphadenopathy, Respiratory - Poor air entry otherwise clear, Cardiovascular - Regular rate and rhythm of heart, Abdomen - Soft, bowel sounds present, Extremities - No visible edema. Lab/Imaging: Test performed on Jan 05, 2021 10:55 WBC 14.6 10 3/uL RBC 5.18 10 6/uL HGB 15.7 g/dL HCT 44.4 % MCV 85.7 fL MCH 30.3 pg MCHC 35.4 g/dL RDW 13.3 % Platelet Count 281 10 3/cmm MPV 10.3 fL Neutrophils 10.91 10 3/uL Lymphocytes 2.5 10 3/uL Monocytes 0.9 10 3/uL Eosinophils 0.2 10 3/uL Basophils 0.1 10 3/uL Neutrophil % 75.1 % Lymphocyte % 16.8 % Monocyte % 6.2 % Eosinophil % 1.2 % Basophils % 0.3 % NRBC % 0 % Impression: Leukocytosis/neutrophilia most likely reactive, to underlying chronic inflammation or infection like subclinical bronchitis due to chronic smoking, or smoking itself, other possibility could be myeloproliferative bone marrow disorder like CML or CMML but Less likely as bone marrow evaluation and other molecular testing came back negative Bone marrow evaluation done on May 04, 2021 showed no evidence of dyspoiesis or increased blast cell, flow cytometry showed no evident myeloid or lymphoid population, BCR ABL negative, Which confirmed leukocytosis most likely due to chronic smoking Aortic regurgitation status post aortic valve prosthetic involvement Chronic musculoskeletal pain syndrome Chronic smoking, still active Chronic depressive personality disorder Plan: Discussed with patient regarding his labs white blood count 13.4 hemoglobin 16.2 hematocrit 47 platelets 289,000 with a normal differential and a bone marrow findings which showed no evidence of leukemia or any other marrow disorder Clinically, patient doing well with no new signs symptoms suggestive of acute or chronic infection, patient is still smoking about a pack a day, recently underwent bone marrow evaluation to rule out bone marrow pathology causing persistent leukocytosis, his bone marrow shows no evidence of myeloproliferative disorder thus etiology of his leukocytosis most likely due to chronic smoking, patient was advised to quit smoking and was offered any assistance he may need, no further work-up from oncology point of view, will see him on as-needed basis patient will follow up with PMD on regular basis Signed By: Tatiana Solis M.D. <<Signature on File>>
== END 2021-05-11 08:30 | disposition home or self-care (01) ==
LOC: ONCMED 08:32
PROVIDERS: PCP Internal Medicine; Visit Provider Internal Medicine Hematology & Oncology
DX: D72.829 Elevated white blood cell count, unspecified (principal); I35.1 Nonrheumatic aortic (valve) insufficiency; G89.29 Other chronic pain; F17.200 Nicotine dependence, unspecified, uncomplicated; F34.1 Dysthymic disorder
CPT/HCPCS: 85025; 99214

== ENCOUNTER → 2021-05-27 15:47 | Outpatient (BNVA) | payer MEDICARE, MEDICAID, SELFPAY | PROVIDERS: PCP Internal Medicine; Visit Provider Internal Medicine Cardiovascular Disease | DX: R06.02 Shortness of breath (principal); R06.00 Dyspnea, unspecified; I50.33 Acute on chronic diastolic (congestive) heart failure; I48.91 Unspecified atrial fibrillation | CPT/HCPCS: 80048; 83880 ==

== ENCOUNTER 2021-07-25 17:33 | Emergency (ER) | payer MEDICARE, MEDICAID, SELFPAY ==
[2021-07-25 18:31] VITALS: BP 143/86; PULSE 60; RESP 18; TEMP 36.9; O2SAT 96; BMI 43.4
--- NOTE | 2021-07-25 19:33 | ED_ITS ---
HPI - Wound/Laceration General: Chief Complaint: Wound/Laceration Stated Complaint: CUT L FOOT ON GLASS:TAKES ON WARFARIN Time Seen by Provider: 07/25/21 19:31 History of Present Illness: HPI narrative: Patient comes in for laceration to his left inner foot. Patient has an open wound to the right inner foot that has been bleeding on and off since noon. Patient does take warfarin for a blood thinner. Patient appears well. Patient appears no acute distress. Patient reports that he had trimmed away the skin flap and had cleaned the wound thoroughly prior to arrival. Patient states that he is just unable to get the bleeding to stop and came into the ER. Review of Systems General: Reports: 10 or more systems reviewed and unremarkable except in HPI and below Skin/Breast: Reports: other (Left foot laceration.) PFS ED PFSH: Medical History Atrial fibrillation Atrial fibrillation with RVR Coronary artery disease Depression Dyslipidemia Dyspnea on exertion Essential hypertension History of Coumadin therapy Hyperlipidemia Hypertension Nicotine dependence Obesity PVD (peripheral vascular disease) Transient atrial fibrillation/flutter Surgical History Aortic valve replaced [place] metallic device History of nephrectomy Family History Mother Diabetes Chronic kidney disease (CKD) Grandmother Cancer Grandfather Cancer Diabetes Lung disease Other Hypertension Denies family history of CAD (coronary artery disease) Clotting disorder Dementia Suicide Anesthesia complication Bleeding disorder Stroke Social History Smoking and tobacco status: current every day smoker cigarettes [ Other cigarette details: 1 pack/day ] Alcohol intake: never Housing: House Physical Exam Const: COMMON NORMALS: no acute distress and patient oriented x3 GENERAL APPEARANCE: cooperative HENMT: COMMON NORMALS: normocephalic and Normal external nose present HEAD & SCALP: normal to inspection and normocephalic NOSE: Normal external nose present Eye: GENERAL EYE: appearance normal, both eyes and all related structures Neck/C-Spine: COMMON NORMALS: full ROM Chest: COMMONS NORMALS: normal inspection of the chest Resp: COMMON NORMALS: normal respiratory effort EFFORT & INSPECTION: Yes able to speak in complete sentences Cardio: COMMON NORMALS: regular rate and regular rhythm RATE: regular rate RHYTHM: regular rhythm GI: COMMON NORMALS: non-tender Extremity: COMMON NORMALS: normal to inspection Neuro: COMMON NORMALS: patient oriented x3 and moves all extremities Psych: COMMON NORMALS: mental status grossly normal and cooperative Skin: NARRATIVE SKIN EXAM: 4 cm laceration sophie-shaped to the left sole of foot. Fat is exposed. No skin flap is available for closure. Procedures Laceration Laceration 1: Site: lower extremity Side (If applicable): left Size (cm): 4 Description: clean and other (Sophie-shaped) Depth: simple, single layer Local Anesthetic: lidocaine 1% Amount of anesthesia used (mL): 6 Pre-repair: wound explored and irrigated extensively Skin layer closed with: nylon Size (cm): 3-0 and 4-0 Number of sutures: 8 Technique: simple, interrupted Course Vital Signs: Vital signs: Vital Signs Temperature 98.5 F 07/25/21 18:31 Pulse Rate 60 07/25/21 18:31 Respiratory Rate 18 07/25/21 18:31 Blood Pressure 143/86 07/25/21 18:31 Pulse Oximetry 96 07/25/21 18:31 MDM - Wound/Laceration MDM Narrative: Medical decision making narrative: 60-year-old male patient comes in for laceration to the left foot. On exam patient has a sophie-shaped 4 cm laceration to the left foot. Wound was slowly bleeding venous type blood. No foreign body was noted in the wound. No sign of fracture was noted to the wound. Differential diagnosis includes need for tetanus, laceration of the foot, need for prophylaxis antibiotic. No sign of fracture or foreign body was noted to the wound. I was unable to completely close the wound due to loss of skin flap. Wound was closed loosely to control bleeding. Bleeding was controlled with suturing. 8 sutures were used to approximate the wound to the best my ability. A nonstick and pressure dressing was applied to the wound. No further bleeding was noted. Patient was given his tetanus shot and started on some Augmentin for prophylaxis antibiotic. Patient will continue with Augmentin twice a day for 7 days. Patient was recommended to stay off the wound is much as possible and keep wound clean and dry for the next 2 days. After that patient can clean the wound gently with some mild soap and water and apply dressing daily until healed. Sutures should come out in 7 days. Patient reported understanding of care plan and need for follow-up or return for worsening symptoms or signs of infection. Discharge Plan Discharge Patient Disposition: Home Clinical Impression: Laceration of foot Qualifiers: Encounter type: initial encounter Laterality: left Qualified Code(s): S91.312A - Laceration without foreign body, left foot, initial encounter Condition: Stable Prescriptions: New Augmentin 875-125 mg tablet 1 tab PO BID Qty: 14 RF: 0 No Action hydrocodone-acetaminophen 10-325 mg tablet 1 tab PO Q6H PRN (Reason: Pain) RF: 0 triamterene-hydrochlorothiazid 37.5-25 mg tablet 1 tab PO DAILY RF: 0 aspirin 81 mg Tablet,Chewable 81 mg PO DAILY RF: 0 warfarin 1 mg tablet 8.5 mg PO DAILY RF: 0 sertraline 50 mg tablet 50 mg PO DAILY RF: 0 rosuvastatin [Crestor] 40 mg tablet 40 mg PO DAILY RF: 0 potassium chloride 10 mEq tablet,ER particles/crystals 10 meq PO DAILY RF: 0 metoprolol tartrate 25 mg Tablet 12.5 mg PO BID Qty: 30 RF: 0 Discharge Orders: Discharge ED (Routine); Ordered 07/25/21 Ordered By: Wyatt Canchola Referrals: Saurav Victoria DO [Primary Care Provider] - Discharge Diet: Usual diet Discharge Activity: Increase activity as tolerated Patient Instructions: Opioid Safety, Wound Care (General) Activity Restrictions/Additional Instructions: Elevate foot. Use crutches for ambulation. Avoid full weightbearing to the foot for at least 5 days. Monitor wound for worsening redness pain and heat. Sutures need to come out in 7 days. Follow-up with primary care in 3 days for recheck of wound site. Keep wound clean and dry as much as possible. It is very important for the next 2 days to keep the wound as dry as possible. After that she can wash the wound gently with some mild soap and water thoroughly dry and then redress to keep it clean. There is no need to apply any antibiotic ointment to the wound at this time. Take antibiotic by mouth twice a day for the next 7 days. Follow-up with primary care in 1 week for suture removal. Return to the ER for high fever, worsening redness and pain to the foot, or new concerns. 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
[2021-07-25] MEDS: amoxicillin-clav 875-125 mg Tablet 1 TAB PO (20:31)
[2021-07-25] MEDS: tetanus-dipt-pertussis 0.5 mL SDV IM (20:31)
[2021-07-25 20:41] VITALS: BP 138/91; PULSE 62; RESP 18; TEMP 36.9; O2SAT 96
== END 2021-07-25 20:47 | disposition home or self-care (01) ==
PROVIDERS: Emergency Provider Nurse Practitioner Family; PCP Internal Medicine
DX: S91.312A Laceration without foreign body, left foot, initial encounter (principal); I48.91 Unspecified atrial fibrillation; I25.10 Atherosclerotic heart disease of native coronary artery without angina pectoris; E78.5 Hyperlipidemia, unspecified; I10 Essential (primary) hypertension; E66.9 Obesity, unspecified; Z68.41 Body mass index [BMI] 40.0-44.9, adult; F17.210 Nicotine dependence, cigarettes, uncomplicated; Z79.82 Long term (current) use of aspirin; Z79.01 Long term (current) use of anticoagulants; W25.XXXA Contact with sharp glass, initial encounter
CPT/HCPCS: 12002; 90471; 90715; 99283; E0114

== ENCOUNTER → 2022-04-04 11:01 | Outpatient (BNVA) | payer BC, MEDICAID, SELFPAY | PROVIDERS: PCP Internal Medicine; Visit Provider Internal Medicine Cardiovascular Disease | DX: I48.0 Paroxysmal atrial fibrillation (principal); I10 Essential (primary) hypertension; R06.00 Dyspnea, unspecified; Z95.2 Presence of prosthetic heart valve; M79.606 Pain in leg, unspecified; E78.5 Hyperlipidemia, unspecified; F17.210 Nicotine dependence, cigarettes, uncomplicated | CPT/HCPCS: 99214 ==

== ENCOUNTER 2022-06-29 07:17 | Outpatient (CLI) | payer MEDICARE, MEDICAID, SELFPAY ==
--- NOTE | 2022-06-29 07:00 | USCV_ITS ---
Harley Bradley Age: 61 Gender: M : 1960 Exam Date: 06/29/2022 07:32 Ordering Phys: William Finch MD ([email or web address]) Technologist: Christine Keith Exam Location: [facility] [place] Indication: AOVR BP: 138 / 76 HR: 60 Rhythm: Sinus Technical Quality: Adequate MEASUREMENTS (Male / Female) Normal Values 2D ECHO LV Diastolic Diameter PLAX 4.3 cm 4.2 - 5.9 / 3.9 - 5.3 cm LV Systolic Diameter PLAX 3.6 cm LV Chamber Size 3.3 cm IVS Diastolic Thickness 1.3 cm 0.6 - 1.0 / 0.6 - 0.9 cm IVS Systolic Thickness 1.0 cm LVPW Diastolic Thickness 1.4 cm 0.6 - 1.0 / 0.6 - 0.9 cm LVPW Systolic Thickness 1.5 cm RV Chamber Size 4.0 cm LVOT Diameter 2.0 cm LV Ejection Fraction 2D Teich 34.3 % LV Ejection Fraction MOD 2C 71.9 % LV Ejection Fraction 2C AL 73.6 % LA Diameter 4.4 cm LA Width 2.9 cm LA Height 4.7 cm RA Width 3.5 cm RA Height 4.2 cm Aorta at Sinotubular Diameter 3.5 cm IVC Diameter 2.0 cm M-MODE Aortic Annulus Diameter 4.2 cm LA Ao Ratio MM 1.3 MV E Point Septal Separation 0.8 cm DOPPLER AV Peak Velocity 283.7 cm/s LVOT Peak Velocity 94.0 cm/s AV Area Cont Eq vti 1.7 cm squared AV Area Cont Eq pk 1.0 cm squared MV Area PHT 2.7 cm squared Mitral E to A Ratio 1.0 MV E' Velocity 38.5 cm/s Mitral E to MV E' Ratio 11.6 Mitral E to LV E' Lateral Ratio 11.8 Mitral E to LV E' Septal Ratio 11.6 TR Peak Velocity 259.9 cm/s TR Peak Gradient 27.0 mmHg TR Mean Velocity 202.0 cm/s TR Mean Gradient 18.9 mmHg TR Velocity Time Integral 54.7 cm TV Peak E Velocity 70.0 cm/s Right Atrial Pressure 3.0 mmHg Pulmonary Artery Systolic Pressu 30.0 mmHg PV Peak Velocity 89.0 cm/s RV Acceleration Time 0.2 s RV Ejection Time 0.5 s RV AcT/ET 0.3 FINDINGS Left Ventricle Mild concentric left ventricular hypertrophy with a normal ejection fraction of 72%. Segmental wall motion analysis difficult because of poor apical windows. Right Ventricle The right ventricle is normal in size and function. Right Atrium The right atrium is normal in size. Left Atrium The left atrium is normal in size. Mitral Valve No gross abnormalities noted Aortic Valve The prosthetic valve in the aortic position appears to be well- seated within normal disc motion. Peak velocity of the aortic valve was 2.88 m/s with a peak gradient of 33 mmHg. The mean gradient was 12 mmHg Tricuspid Valve Trace tricuspid valve regurgitation. Pulmonic Valve Pulmonic valve not well visualized. Pericardium Normal pericardium without effusion. Aorta Normal aortic annulus size. IVC Upper limit of normal size CONCLUSIONS Mild concentric left ventricular hypertrophy with a normal ejection fraction of 72%. Segmental wall motion analysis difficult because of poor apical windows. The prosthetic valve in the aortic position appears to be well- seated with normal disc motion. Peak velocity of the aortic valve was 2.88 m/s with a peak gradient of 33 mmHg. The mean gradient was 12 mmHg. Trace tricuspid valve regurgitation. Estimated pulmonary artery peak systolic pressure 30 mmHg No pericardial effusion. Technically difficult study because of the poor ultrasonic window. Compared to the study from 04/08/2021, there may not be significant change Dr William Finch MD [facility] (Electronically Signed) Final Date: 01 July 2022 09:49 S
== END 2022-06-29 07:18 | disposition home or self-care (01) ==
LOC: RAD 07:19
PROVIDERS: PCP Internal Medicine; Visit Provider Internal Medicine Cardiovascular Disease
DX: R06.00 Dyspnea, unspecified (principal); Z95.2 Presence of prosthetic heart valve; I07.1 Rheumatic tricuspid insufficiency
CPT/HCPCS: 93306

== ENCOUNTER 2022-07-15 14:03 | Outpatient (CLI) | payer MEDICARE, MEDICAID, SELFPAY ==
--- NOTE | 2022-07-15 14:18 | XR_ITS ---
WS: [id number] Cervical spine, AP, lateral, AP odontoid, both obliques, 07/15/2022 Clinical Data: CERVICAL DENGERATIVE DISC DISEASE Comparison: None. Findings: No compression fractures are seen. The disc heights are normal. There is no prevertebral so ft tissue swelling. The odontoid is unremarkable. The obliques no foraminal narrowing or encroachment . The soft tissues of the neck and the lung apices are normal. XR/XR cervical spine 4-5V [id number] Impression: 1. Negative cervical spine. 2. Negative oblique images of the cervical spine.
--- NOTE | 2022-07-15 14:18 | XR_ITS ---
WS: [id number] Lumbar spine, AP, both obliques, lateral, L5-S1 spot, 07/15/2022 Clinical Data: LUMBAR DENIGRATIVE DISC DISEASE Comparison: None. Findings: No compression fractures or subluxation is seen. Degenerative disc disease with accompanying spurring is present at L5-S1. The obliques show no spondylolysis.. The transverse processes and SI joints are normal. There is a moderate amount of air in the small bowel which is not dilated. XR/XR lumbar spine min 4V [id number] Impression: 1. Negative lumbar spine. 2. Negative for spondylolysis on oblique films.
--- NOTE | 2022-07-15 14:20 | XR_ITS ---
WS: [id number] Right knee, AP and lateral views, 07/15/2022 Clinical Data: BILATERAL KNEE PAIN Comparison: None. Findings: No fractures or dislocations are seen. The joint spaces are normal. The patella is intact. The soft t issues are unremarkable. XR/XR knee RT 1-2V [id number] Impression: Negative right knee. Kellgren-Laron Classification: grade 0 (none): definite absence of x-ray halle nges of osteoarthritis
--- NOTE | 2022-07-15 14:20 | XR_ITS ---
WS: [id number] Left knee, AP and lateral views, 07/15/2022 Clinical Data: BILATERAL KNEE PAIN Comparison: None. Findings: No fractures or dislocations are seen. The joint spaces are normal. The patella is intact. The soft t issues are unremarkable. XR/XR knee LT 1-2V 16420 Impression: Negative left knee. Kellgren-Laron Classification: grade 0 (none): definite absence of x-ray halle nges of osteoarthritis
== END 2022-07-15 14:04 | disposition home or self-care (01) ==
LOC: RAD 14:09
PROVIDERS: PCP Internal Medicine; Visit Provider General Practice
DX: M50.30 Other cervical disc degeneration, unspecified cervical region (principal); M51.36 Other intervertebral disc degeneration, lumbar region; M25.561 Pain in right knee; M25.562 Pain in left knee
CPT/HCPCS: 72050; 72110; 73560